=== PATIENT | male | born 1930 | race Two or more races ===

== ENCOUNTER 2016-05-31 11:00 | Inpatient (IN) | payer MEDICARE, BC ==
--- NOTE | 2016-05-30 08:03 | HP ---
HISTORY AND PHYSICAL: DATE OF OFFICE VISIT: 05/27/16 DATE OF SURGERY/ADMISSION: 05/31/16 ATTENDING SURGEON: Dorothy Gaspar MD (dictated by NIKITA Moya) PROCEDURE: Left total hip replacement. CHIEF COMPLAINT: Left hip pain. HISTORY OF PRESENT ILLNESS: The patient is a very pleasant 85-year-old gentleman who presents today for a history and physical examination prior to undergoing a left total hip replacement by Dr. Dorothy Gaspar. He presents today in the office with his . In brief, the patient has tried several conservative treatments including exercises, hip injections, and antiinflammatory medication; however, he has had no relief in worsening of his left hip pain. He has elected to undergo a left total hip arthroplasty by Dr. Dorothy Gaspar on 05/31/16. PAST MEDICAL HISTORY: 1. Irritable bowel syndrome. 2. History of TIA. 3. History of dislocated knee as a teenager. PAST SURGICAL HISTORY: 1. Repair of dislocated knee as a teenager. 2. Cataract surgery. 3. Detached retinal surgery in 1999. CURRENT MEDICATIONS: The patient is not currently taking any medications. He has tried Advil as well as Motrin in the past for pain relief. ALLERGIES: LEVAQUIN. FAMILY MEDICAL HISTORY: Maternal cancer. Paternal advanced arthritis. SOCIAL HISTORY: The patient is and lives with his . He is retired. Denies tobacco or recreational drug use. Occasional alcohol use. REVIEW OF SYSTEMS: General: Negative for fevers, chills, or night sweats. No known difficulty with anesthesia. HEENT: Negative for headaches, lightheadedness, or syncopal episodes. Integument: Negative for abrasions, lesions, or open wounds. Cardiothoracic: Negative for chest pain, palpitations , or edema. Negative for hypertension. History of skipped heartbeats, however, asymptomatic. Pulmonary: Negative for shortness of breath or exertion, chronic cough, or COPD. GI: Negative for nausea or vomiting. Positive for constipation and diarrhea with IBS flareup. He does not take medications for this flareup. No history of GERD. : Negative for nocturia, urinary frequency , urgency, history of UTIs, or kidney problems. Musculoskeletal: Positive for left hip pain. Positive for right hip pain. Positive for carpal tunnel. Neuro : Positive for numbness in bilateral hands due to carpal tunnel disease. No history of seizures or epilepsy. Positive for TIA. Endocrine: Negative for diabetes or thyroid disease. Hematologic: Negative for easy bruising, anemia, or excessive bleeding. No history of DVTs or PEs. Infectious Disease: Negative for MRSA, hepatitis C, or HIV. PHYSICAL EXAMINATION GENERAL: Well appearing, in no acute distress, 85-year-old male. VITAL SIGNS: Blood pressure of 122/82, pulse 70 and regular rhythm, and respirations 18. HEENT: Normocephalic, atraumatic. EOMI. NECK: Supple. PULMONARY: Lungs are clear to auscultation bilaterally. No crackles, rhonchi, or wheezes. CARDIAC: Irregular rhythm. Audible S1, S2. No murmurs, gallops, or rubs. No edema. ABDOMEN: Soft, nontender, and nondistended. Nonobese. BACK: No CVA tenderness bilaterally. NEUROLOGIC: Alert and oriented x3. Cranial nerves grossly intact. Sensation intact to light touch in bilateral lower extremities. MUSCULOSKELETAL: Antalgic gait favoring on the left side. Posterior tibialis pulses 2+ bilaterally. No edema in bilateral lower extremities. Sensation is intact to bilateral lower extremities. No wounds or sores are seen on bilateral lower extremities. DIAGNOSTIC STUDIES/LAB DATA: CT of the pelvis dated 04/28/16 and left pelvic x -ray dated 04/27/16 show advanced osteoarthritis of the left hip. IMPRESSION: The patient is a very pleasant 85-year-old gentleman who presents today for history and physical examination prior to undergoing an elective left hip arthroplasty by Dr. Dorothy Gaspar. The patient was seen by his primary care physician on 05/20/16, where a referral to cardiology was requested due to the patient's sinus arrhythmia and history of transient ischemic attacks. The patient met with Dr. Bush on 05/27/16, who recommended that the patient undergo an echocardiogram and nuclear stress test to evaluate his heart murmur and abnormal EKG prior to final preoperative clearance. The medications of the patient including Coumadin, Percocet, and Colace were called into the [facility]. The patient was referred to have rehabilitation done at home postoperatively. He will follow up with Dr. Gaspar in approximately 10 to 14 days postoperatively for suture removal and he will call us if any questions or concerns he may have in the future. LUIS GARCIA, NIKITA [id number]/[facility] #: [id number] [facility] HOSPITALDaniel
--- NOTE | 2016-07-04 18:55 | HP ---
HISTORY AND PHYSICAL: DATE OF ADMISSION/SURGERY: 07/08/16 ATTENDING SURGEON: Dr. Dorothy Gaspar. PROCEDURE: Left total hip replacement. CHIEF COMPLAINT: The patient presents for preop for left total hip arthroplasty. HISTORY OF PRESENT ILLNESS: The patient is a very pleasant 85-year-old gentleman who presents today for his history and physical exam prior to undergoing a left total hip arthroplasty by Dr. Gaspar. The patient presents today in the office with his . The patient has tried several conservative treatments including exercises, hip injections, and anti-inflammatory medication ; however, no relief has been found and there is worsening of his left hip pain. The patient has elected to undergo a left total hip arthroplasty with Dr. Gaspar on 07/08/16. PAST MEDICAL HISTORY: Irritable bowel syndrome, history of TIA in March of 2015, history of dislocated knee as a teenager, and bilateral carpal tunnel syndrome. PAST SURGICAL HISTORY: Repair of dislocated knee as a teenager, cataract surgery, detached retinal surgery, and abdominal hernia repair. CURRENT MEDICATIONS: 1. The patient is taking aspirin 325 mg daily. 2. Tylenol as needed for pain. ALLERGIES: LEVAQUIN. FAMILY HISTORY: Maternal cancer. Paternal advanced arthritis. SOCIAL HISTORY: The patient is and lives with his . He is retired. The patient denies tobacco or recreational drug use. Admits to occasional alcohol use, 1 glass of beer 2 to 3 times a week. REVIEW OF SYSTEMS: The patient denies any fevers, chills, night sweats, or anesthesia problems. HEENT: The patient denies any headaches, lightheadedness , or syncopal episodes. Integument: The patient denies any abrasions, lesions , or open wounds. Cardiothoracic: The patient denies any chest pain, palpitations, or edema. The patient denies any hypertension. Pulmonary: The patient denies any shortness of breath with exertion, chronic cough, or COPD. GI: The patient denies any nausea, vomiting, constipation, or diarrhea. The patient denies any GERD. The patient denies any nocturia, urinary frequency, urinary urgency, history of UTIs, or kidney problems. MSK: The patient admits to left hip pain and carpal tunnel syndrome, numbness and tingling of the hands. Neuro: The patient admits to numbness and tingling of the hands bilaterally due to carpal tunnel disease. The patient denies history of seizures or epilepsy. The patient is positive for TIA. Endocrine: The patient denies any diabetes or thyroid complaints. Hematologic: The patient denies any easy bruising, anemia, or excessive bleeding. Infectious Disease: The patient denies any MRSA, hepatitis C, or HIV. PHYSICAL EXAMINATION GENERAL: The patient is a well-appearing male in no acute distress. HEENT: Normocephalic, atraumatic. Extraocular movements are grossly intact. NECK: Supple with no palpable lymphadenopathy. PULMONARY: Lungs clear to auscultation bilaterally. No crackles, rhonchi, or wheezing. CARDIO: Regular rate and rhythm with an audible S1 and S2. No appreciable S3, S4. No murmurs, rubs, or gallops, and mild edema of the ankles. ABDOMEN: Soft, nontender, nondistended. Not obese. The patient has no CVA tenderness bilaterally. NEUROLOGIC: The patient is alert and oriented x3. Cranial nerves are grossly intact. Sensation to light touch bilateral lower extremities. Left lower extremity antalgic gait, favoring the left leg. Posterior tibial pulse is 2+ bilaterally with mild edema bilateral lower extremities. Sensation is intact in the bilateral lower extremities. No wounds or sores seen. DIAGNOSTIC STUDIES: Recent x-ray was deemed acceptable by Dr. Dorothy Gaspar and myself and reviewed by us. ASSESSMENT: Preop for left total hip arthroplasty. PLAN: The patient is a very pleasant 85-year-old gentleman who presents today for his history and physical exam prior to undergoing an elective left total hip arthroplasty. The patient was cleared by Cardiology on 06/30/16 to undergo this procedure. The patient will follow up with Dr. Gaspar in approximately 10 to 14 days postoperatively for suture removal. He will call with any questions or concerns he may have in the meantime. NIKITA MOELLER [id number]/[facility] #: [id number] MTDD
[2016-07-08] MEDS ORDERED: Buffered Lidocaine 1% SYR 3ML* 3 ML/SYR SYRINGE INTRADERM ONE (06:00)
[2016-07-08] MEDS ORDERED: Famotidine TAB* 20 MG PO ONE (06:00)
[2016-07-08] MEDS ORDERED: Dexamethasone IV* 4 MG/ML 1 ML (4 MG) IV SLOW PU ONE (06:00)
[2016-07-08] MEDS ORDERED: Dexamethasone IV* 4 MG/ML 1 ML (4 MG) ONE (06:23)
[2016-07-08] MEDS ORDERED: Famotidine TAB* 20 MG ONE (06:23)
[2016-07-08] MEDS ORDERED: Buffered Lidocaine 1% SYR 3ML* 3 ML/SYR SYRINGE ONE (06:23)
[2016-07-08] MEDS ORDERED: ceFAZolin 2 GM PREMIX (*) 2 GM/50 ML BAG IVPB ONE (06:23)
[2016-07-08] MEDS ORDERED: KETAMINE HCL* 50 MG/ML 10 ML VIAL ONE (07:22)
[2016-07-08] MEDS ORDERED: Morphine PF AMP (0.5MG/ML)* 5 MG/10 ML AMP ONE (07:22)
[2016-07-08] MEDS ORDERED: Midazolam* 1 MG/ML 5 ML VIAL (5 MG) ONE (07:22)
[2016-07-08] MEDS ORDERED: Bupivacaine 0.5% SDV PF* 30 ML VIAL ONE (07:23)
[2016-07-08] MEDS ORDERED: Ondansetron INJ* 2 MG/ML VIAL ONE (07:23)
[2016-07-08] MEDS ORDERED: Propofol* 10 MG/ML 20 ML BTL IV PUSH ONE (07:23)
[2016-07-08] MEDS ORDERED: Phenylephrine IV* 40 MCG/ML 10 ML SYRINGE ONE (08:03)
[2016-07-08] MEDS ORDERED: Nalbuphine* 20 MG/ML 1 ML VIAL IV PRN ×2 (08:35)
[2016-07-08] MEDS ORDERED: fentaNYL* 50 MCG/ML 2 ML VIAL (100 MCG VIAL) IV PRN (08:35)
[2016-07-08] MEDS ORDERED: Ondansetron INJ* 2 MG/ML VIAL IV PRN (08:35)
[2016-07-08] MEDS ORDERED: Naloxone* 0.4 MG/ML 1 ML VIAL IV PRN (08:35)
[2016-07-08] MEDS ORDERED: oxyCODONE/Acetamin 5/325 MG* TAB PO PRN ×2 (08:35)
[2016-07-08] MEDS ORDERED: Phenylephrine INJ* 10 MG/ML 1 ML VIAL (10 MG) ONE (08:45)
--- NOTE | 2016-07-08 10:03 | RAD ---
INDICATION: Left total hip replacement COMPARISON: April 27, 2016 TECHNIQUE/FINDINGS: A crosstable lateral portable image obtained during left total hip replacement shows placement of the acetabular cup with the stem placed for sizing. IMPRESSION: CONTROL IMAGES FOR TOTAL LEFT HIP ARTHROPLASTY
[2016-07-08] MEDS ORDERED: Acetaminophen TAB* 325 MG PO PRN (10:23)
[2016-07-08] MEDS ORDERED: diPHENhydraMINE IV* 50 MG/ML 1 ml VIAL (BENADRYL) IV PRN (10:23)
[2016-07-08] MEDS ORDERED: Bisacodyl SUPP* 10 MG SUPP PR PRN (10:23)
[2016-07-08] MEDS ORDERED: Polyethylene Glycol 3350* 17 GM PACKET PO PRN (10:23)
[2016-07-08] MEDS: Ropivacaine* 300 MG in NS 0.9% 250 ML* 240 ML EPIDURAL SCH (10:30)
--- NOTE | 2016-07-08 11:16 | RAD ---
HISTORY: Status post left total hip arthroplasty COMPARISONS: April 27, 2016 VIEWS: 3, Frontal view of the pelvis with frontal and crosstable lateral views of the left hip FINDINGS: BONE DENSITY: There is diffuse osteopenia. BONES: The patient is status post left hip arthroplasty. There is no hardware failure or osteolysis. JOINTS: The patient is status post left hip arthroplasty. There is moderate to advanced osteoarthritis of the right hip. ALIGNMENT: There is no dislocation. SOFT TISSUES: Unremarkable. OTHER FINDINGS: None. IMPRESSION: OSTEOPENIA. STATUS POST LEFT HIP ARTHROPLASTY. OSTEOARTHRITIS.
[2016-07-08] MEDS ORDERED: oxyCODONE/Acetamin 5/325 MG* TAB ONE (14:52)
[2016-07-08] MEDS ORDERED: Warfarin TAB(*) 6 MG PO ONE (17:00)
[2016-07-08] MEDS: ceFAZolin 1 GM in Dextrose (*) 1 GM/50 ML BAG IVPB SCH ×2 (17:23→22:15)
[2016-07-08] MEDS: Docusate CAP* 100 MG PO SCH (22:14)
[2016-07-08] MEDS: Magnesium Hydroxide LIQ* 30 ML UDC PO SCH (22:14)
[2016-07-09] MEDS: ceFAZolin 1 GM in Dextrose (*) 1 GM/50 ML BAG IVPB SCH (03:31)
[2016-07-09] MEDS: Ropivacaine* 300 MG in NS 0.9% 250 ML* 240 ML EPIDURAL SCH (03:31)
[2016-07-09] MEDS ORDERED: oxyCODONE TAB* 5 MG TAB PO PRN (06:00)
[2016-07-09] MEDS ORDERED: Morphine INJ* 4 MG/ML 1 ML CARPUJECT IV PRN (06:00)
[2016-07-09 07:19] LABS: Hematocrit 28 % (42-52); Hemoglobin 9.3 g/dl (14.0-18.0)
[2016-07-09 07:37] LABS: BUN/Creatinine Ratio 15.5 (8-20); Calcium 8.3 mg/dL (8.6-10.3); EGFR African American 136.3 (>60); Potassium 3.8 mmol/L (3.5-5.0)
--- NOTE | 2016-07-09 09:37 | PN ---
Progress Note - Progress Note SOAP: Subjective: Pt. is alert, slightly confused. He reports pain is well controlled. Objective: LLE - dressing c/d/i. thigh soft, distally +df/pf, full sens lt, 2+ dp pulse. Vital Signs: Temp Pulse Resp BP Pulse Ox 98.6 F 81 16 116/71 98 07/09/16 07:53 07/09/16 07:53 07/09/16 08:25 07/09/16 07:53 07/09/16 08:48 Laboratory Results - last 24 hr 07/09/16 07/09/16 07/09/16 06:51 06:51 06:51 Hgb 9.3 L Hct 28 L INR (Anticoag Therapy) 1.07 Sodium 135 Potassium 3.8 Chloride 102 Carbon Dioxide 28 Anion Gap 5 BUN 11 Creatinine 0.71 Est GFR ( Amer) 136.3 Est GFR (Non-Af Amer) 106.0 BUN/Creatinine Ratio 15.5 Glucose 110 H Calcium 8.3 L Assessment: 85 yo F pod 1 s/p LTHA Plan: PT/OT - wbat lle with post hip precautions 8 mg coumadin tonight, lovenox bridge vitals and hct stable limit pain meds if possible, slight baseline dementia suspected
[2016-07-09] MEDS: Vitamin THERAPEUTIC TAB PO SCH (10:08)
[2016-07-09] MEDS: Docusate CAP* 100 MG PO SCH ×2 (10:08→21:28)
[2016-07-09] MEDS: Magnesium Hydroxide LIQ* 30 ML UDC PO SCH ×2 (10:09→21:28)
[2016-07-09] MEDS: Enoxaparin(*) 30 MG/0.3 ML SYR SUBCUT SCH (12:33)
[2016-07-09] MEDS ORDERED: Warfarin TAB(*) 4 MG PO ONE (17:00)
[2016-07-09] MEDS: Morphine INJ* 2 MG/ML 1 ML CARPUJECT IV PRN (17:35)
[2016-07-09] MEDS: oxyCODONE TAB* 5 MG TAB PO PRN (20:00)
[2016-07-09] MEDS ORDERED: Haloperidol INJ IV/IM* 5 MG/ML AMP IM ONE (20:26)
[2016-07-09] MEDS: Acetaminophen TAB* 325 MG PO SCH (20:41)
--- NOTE | 2016-07-09 20:55 | PN ---
Progress Note - Progress Note Note: Patient becoming more agitated and pulling at lines and tubes, even with at bedside. Trial of 2mg haldol now.
--- NOTE | 2016-07-10 00:37 | OP ---
DATE OF OPERATION: 07/08/16 - ROOM #336 DATE OF : 34 ATTENDING SURGEON: Dorothy Gaspar MD. ZIGZAG TOPSTITCHER: NIKITA Johansen ANESTHESIOLOGIST: Dr. Lawrence. ANESTHESIA: Spinal. PRE-OP DIAGNOSIS: Severe end-stage degenerative osteoarthritis of the left hip joint. POST-OP DIAGNOSIS: Severe end-stage degenerative osteoarthritis of the left hip joint. OPERATIVE PROCEDURE: Left total hip arthroplasty with acetabular bone auto grafting. COMPLICATIONS: None. ESTIMATED BLOOD LOSS: 350 cc. SPECIMENS: Femoral head and acetabular reaming sent to pathology. BRIEF HISTORY/INDICATIONS: Mr. Cano is an 85-year-old gentleman with 1 year of severe left hip pain. He failed conservative treatment with antiinflammatories, physical therapy, pain medication, and ambulatory assistive devices. He elected to undergo left total hip arthroplasty due to continued pain and decreased quality of life. Informed consent was obtained from the patient. He understood the risks of the procedure included, but were not limited to, bleeding, infection, damage to nearby structures, continued pain, need for further surgery, intraoperative fracture, nerve palsy, hardware failure or loosening, dislocation, leg length discrepancy, stroke, heart attack , blood clot and . He wished to proceed. HARDWARE USED: Uncemented total hip arthroplasty hardware from [employer] For the acetabular cup, a Tritanium Hemispherical Shell 58F. The 120 mm and 125 mm screws were used for extra stability. For the polyethylene, a 40F 0-degree Trident X3 polyethylene insert. For the femur, a size 3.5 Accolade TMZF size with 127-degree neck. For the head a 40, +4 V40 L-Fit metal head. INTRAOPERATIVE FINDINGS: Intraoperatively, the patient was noted to have severe end-stage degeneration of the left hip joint. Acetabulum had complete loss of cartilage and extensive subchondral cyst formation in the weightbearing portion of the joint. This was bone grafted with autograft from acetabular reaming and femoral head. DESCRIPTION OF PROCEDURE: Mr. Cano was identified in the preanesthesia unit. His left lower extremity was marked as the correct operative site. Informed consent was signed and placed in the the chart. The patient was taken to the operating room and placed under spinal anesthesia without difficulty. Rose catheter was placed. The patient was placed in the right lateral decubitus position on the peg board. All bony prominences were well padded. Left lower extremity was prepped and draped in the usual sterile fashion. Preop time-out was made to correctly identify the patient, side, and site. Appropriate perioperative antibiotics were given within 1 hour of incision. A 12-cm standard posterior hip incision was made with a 10 blade and carried down through the skin to the lateral fascial layer. Lateral fascial layer was then incised in the line with the skin incision. Charnley retractor was placed and the posterior aspect of the hip joint was visualized. The piriformis and conjoint tendons were identified. These were elevated off the posterolateral femur with electrocautery and tagged with two #5 Ethibond. Next, electrocautery was used to make a standard posterolateral capsular flap and was tagged with two #5 Ethibond. The hip was carefully dislocated. Lesser trochanter to center of femoral head measured 55 mm. The oscillating saw was used to make the appropriate femoral neck cut. The femoral head was sent to pathology. The femur was retracted anteriorly. After appropriate placement of retractors, the acetabulum was easily visualized. Long-handle knife was used to sharply remove any remaining labrum or fibrous tissue from acetabular rim. The acetabulum was sequentially reamed up to a size 57. Good bleeding bone bed was obtained. In the superior portion of the weightbearing dome, there was a large amount of cystic formation. A curette was used to scrape out any fibrous cystic tissue. This area was then bone grafted with acetabular reamings. A 57 trial had excellent stability. A Trident Tritanium Multi-Hole Shell size 58 was chosen. This was impacted into the acetabulum without difficulty. There was satisfactory anteversion and abduction angle. There was excellent stability. Two screws were placed for extra fixation in the superoposterior quadrant, one was length of 20 and one was length of 25 mm. Next, a Trident X3 polyethylene insert 0 degrees with size 40F was chosen, this was impacted into the acetabulum without difficulty. Stability of the insert was checked and rechecked and noted to be stable. Attention was next turned to preparation of the proximal femur. After appropriate placement of retractors, the proximal femur was easily visualized. A canal finder was used to enter the proximal femur. The proximal femur was sequentially broached up to a size 3.5. The 3.5-broach had excellent stability and appropriate anteversion. A trial 127-degree neck as well as a 40 +0 femoral head trial was chosen. The lesser lesser trochanter to center of the femoral head measured 55 mm. The hip was reduced and taken through range of motion. The hip was noted to be stable in all positions. There was good soft tissue tension and appropriate leg length. The hip was carefully dislocated. All trials were carefully removed. Final implant chosen was an Accolade TMZF size 3.5 with a 127-degree neck. This was impacted into the femur without difficulty. There was excellent stability. A 40 +4 metal femoral head was chosen as the final implant. This was impacted on to the femoral neck without difficulty. Lesser trochanter to the center of the femoral head measured 57 mm, which fits preop templating. The hip was reduced. The hip was taken through range of motion and noted to be stable in all positions. There was good soft tissue tension and approximate leg length. The hip was copiously irrigated with sterile saline. Previously tagged capsular flap and tendons were reapproximated to the posterolateral femur through the trochanteric drill holes. The lateral fascial area was reapproximated using interrupted #1 Vicryl. The rest of the incision was closed in a layered fashion using 0 and 2-0 Vicryl. Skin was closed using running 3-0 Monocryl and Dermabond. Sterile, Adaptics, 4x4s and paper tape were used to cover the incision. The patient's anesthesia was reversed without difficulty. He was taken to the PACU in stable condition. Intended weightbearing will be weightbearing as tolerated with posterior hip precautions. Intended DVT prophylaxis will be Coumadin with a Lovenox bridge. [id number]/[facility] #: [id number] [facility]
[2016-07-10] MEDS: Morphine INJ* 2 MG/ML 1 ML CARPUJECT IV PRN (01:56)
[2016-07-10] MEDS: oxyCODONE TAB* 5 MG TAB PO PRN (05:16)
[2016-07-10 06:44] LABS: Hematocrit 29 % (42-52); Hemoglobin 9.9 g/dl (14.0-18.0)
[2016-07-10] MEDS: Docusate CAP* 100 MG PO SCH ×2 (08:51→19:15)
[2016-07-10] MEDS: Acetaminophen TAB* 325 MG PO SCH ×2 (08:51→19:20)
[2016-07-10] MEDS: Vitamin THERAPEUTIC TAB PO SCH (08:51)
[2016-07-10] MEDS: Magnesium Hydroxide LIQ* 30 ML UDC PO SCH ×2 (08:52→19:16)
--- NOTE | 2016-07-10 09:31 | PN ---
Subjective Date of Service: 07/10/16 Interval History: Patient seen and examined. Pt offers no complaints this AM, except that last night was the longest night of his life. Denies fever, chills, shortness of breath, chest discomfort, N/V/D. NSG report that Pt is less confused this AM, than he was yesterday and last night. Family History: Unchanged from Admission Social History: Unchanged from Admission Past Medical History: Unchanged from Admission Objective Active Medications: Acetaminophen (Tylenol Tab*) 975 mg PO BID HERNAN Bisacodyl (Dulcolax Supp*) 10 mg VA DAILY PRN Reason: constipation Docusate Sodium (Colace Cap*) 100 mg PO BID HERNAN Enoxaparin Sodium (Lovenox(*)) 30 mg SUBCUT Q24H HERNAN Lactated Ringer's (Lactated Ringers 1000 Ml Bag*) 1,000 mls @ 100 mls/hr IV PER RATE HERNAN Lactulose (Lactulose*) 30 ml PO Q6H PRN Reason: constipation Magnesium Hydroxide (Milk Of Magnesia Liq*) 30 ml PO BID HERNAN Morphine Sulfate (Morphine Inj (Syringe)*) 2 mg IV Q30M PRN Reason: PAIN - UNRELIEVED Multivitamins (Theragran Tab*) 1 tab PO DAILY HERNAN Oxycodone HCl (Roxycodone Tab*) 5 mg PO Q4H PRN Reason: PAIN Pharmacy Profile Note (Coumadin Daily Reminder*) 1 note FOLLOW UP 1700 HERNAN Polyethylene Glycol/Electrolytes (Miralax*) 17 gm PO DAILY PRN Reason: Constipation Vital Signs 07/09/16 07/09/16 07/09/16 12:27 16:00 16:21 Temperature 97.3 F 98.0 F Pulse Rate 79 84 Respiratory 18 16 Rate Blood Pressure 101/57 126/74 (mmHg) O2 Sat by Pulse 97 97 93 Oximetry 07/09/16 07/09/16 07/10/16 22:00 22:30 01:56 Temperature 98.6 F Pulse Rate 96 Respiratory 17 18 17 Rate Blood Pressure 121/72 (mmHg) O2 Sat by Pulse 92 Oximetry 07/10/16 07/10/16 07/10/16 02:56 05:16 05:24 Temperature 98.0 F Pulse Rate 89 Respiratory 17 17 20 Rate Blood Pressure 131/79 (mmHg) O2 Sat by Pulse 98 Oximetry 07/10/16 07/10/16 07/10/16 07:16 08:34 08:48 Temperature 98.4 F Pulse Rate 86 Respiratory 16 18 Rate Blood Pressure 129/83 (mmHg) O2 Sat by Pulse 96 98 Oximetry Oxygen Devices in Use Now: None Appearance: NAD, sitting up in bed. Eyes: No Scleral Icterus, PERRLA Ears/Nose/Mouth/Throat: NL Teeth, Lips, Gums, Mucous Membranes Moist Neck: NL Appearance and Movements; NL JVP, Trachea Midline Respiratory: Symmetrical Chest Expansion and Respiratory Effort, Clear to Auscultation Cardiovascular: NL Sounds; No Murmurs; No JVD, RRR Abdominal: NL Sounds; No Tenderness; No Distention Lymphatic: No Cervical Adenopathy Extremities: No Edema Skin: No Rash or Ulcers, - - Dressing to left hip clean, dry and intact. Neurological: Alert and Oriented x 3, NL Muscle Strength and Tone Lines/Tubes/Other Access: Clean, Dry and Intact Peripheral IV - site benign. Nutrition: Taking PO's Result Diagrams: 07/10/16 05:39 07/09/16 06:51 Assess/Plan/Problems-Billing Assessment: MR. Cano is an 85 yo male with PMH significant for IBS and HX TIA, who presented to the hospital for an elective left total hip arthroplasty with Dr. Gaspar on 07/08. - Patient Problems (1) Status post total hip replacement, left Code(s): Z96.642 - PRESENCE OF LEFT ARTIFICIAL HIP JOINT SNOMED Code(s): 934860686517 Comment: POD #2. Management per Ortho. HH stable. Pt with some confusion overnight, suspect postoperative delirium. Pt required a dose of Haldol last evening. Continue pain medication, limiting narcotics and OT/PT. (2) Delirium Code(s): R41.0 - DISORIENTATION, UNSPECIFIED SNOMED Code(s): 9715728 Comment: AMS improved. Suspect this is related to postoperative delirium. Continue to offer supportive care and limit narcotics. (3) Hx of transient ischemic attack (TIA) Comment: Resume ASA when ok with Ortho. (4) DVT prophylaxis Code(s): DRS6685 - SNOMED Code(s): 929824118 Comment: Continue Lovenox bridge to Warfarin per Ortho. (5) Full code status Code(s): Z78.9 - OTHER SPECIFIED HEALTH STATUS SNOMED Code(s): 225097994 Status and Disposition: Inpatient. Discharge per Ortho.
--- NOTE | 2016-07-10 10:20 | PN ---
Progress Note - Progress Note SOAP: Subjective: POD #2 Left MICHAEL. Pt with some increasing confusion yesterday, seems better today. Denies c/o pain at rest but feels "stiff". Denies CP/SOB or calf pain. Rose reinserted yesterday afternoon due to some retention. Objective: Vital Signs: Temp Pulse Resp BP Pulse Ox 98.4 F 86 18 129/83 98 07/10/16 08:48 07/10/16 08:48 07/10/16 08:48 07/10/16 08:48 07/10/16 08:48 Gen: A & Ox2, unsure of date. NAD sitting in chair LLE: Incision C/D/I, mild ecchymosis surrounding incision, no hematoma or erythema. +f/e at ankles and MTPs. N/V intact Upon standing to change dressing, pt needed 2 assist and was somewhat slow to follow commands. Labs: Laboratory Results - last 24 hr 07/10/16 07/10/16 05:39 05:39 Hgb 9.9 L Hct 29 L INR (Anticoag Therapy) 1.16 H Assessment: POD #2 Left MICHAEL Plan: Cont. PT/OT, PMRU consult for possible acute rehab prior to d/c home INR 1.16, 8mg Coumadin tonight Will continue to follow, appreciate hospitalist input for pt's confusion
--- NOTE | 2016-07-10 11:29 | CONS ---
HOSPITAL MEDICINE CONSULTATION REPORT: DATE OF CONSULT: 07/09/16 CONSULTING PHYSICIAN: Dr. Dorothy Gaspar. ATTENDING PHYSICIAN: Dr. Josiah Barksdale (dictation provided by Pearl Muñoz NP) . REASON FOR CONSULT: Acutely altered mental status. HISTORY OF PRESENT ILLNESS: Mr. Cano is an 85-year-old male with a past medical history of TIA, irritable bowel syndrome, and history of a dislocated knee as a teenage, who presented to the hospital on 07/08/16 for left hip replacement with Dr. Gaspar. Please see the dictated H and P from Dr. Gaspar for complete details. In brief, the patient had ongoing pain, and despite maximum medical conservative treatment, the pain was unrelieved, and therefore, he decided to go on for left total hip replacement. The patient is unable to answer questions reliably at this time, but per his , he was in his normal state of health prior to coming in. Mr. Cano was doing well last evening and into this morning per nursing staff. His does report that the patient called her at home at 8 p.m. and was unclear where he was. This morning, the patient sat up for breakfast and did well. However, by about lunch time, the patient became more tired and confused. He had some difficulty getting back into bed because he had difficulty following commands of the nursing staff. At that time, a consultation was placed from Dr. Gaspar for hospital medicine to see the patient for altered mental status. PAST MEDICAL HISTORY: 1. Irritable bowel syndrome. 2. History of TIA. 3. History of dislocated knee as a teenager. PAST SURGICAL HISTORY: 1. Repair of dislocated knee as a teenager. 2. Cataract surgery. 3. Detached retinal surgery. MEDICATIONS: None as outpatient, but he is currently on: 1. Benadryl IV p.r.n. 2. Oxycodone 10 mg p.r.n. 3. Morphine IV 4 mg p.r.n. q.3 hours. ALLERGIES: LEVOFLOXACIN. FAMILY HISTORY: Reviewed and not obtainable. SOCIAL HISTORY: No report of alcohol, tobacco, or drug use per the patient's . REVIEW OF SYSTEMS: Unobtainable. PHYSICAL EXAM: Vital Signs: Temperature 97.3, pulse rate 73, respiratory rate 18, oxygen saturation 97% on room air, blood pressure 101/57. General: Mr. Cano is lying in the bed. He is in no acute distress. He is calm and cooperative to my examination. When I came in, he was sleeping, but he awakens easily. Neurologic: He is alert. He is oriented to himself. When asked, he states that he is at home. I tell him that he is in the hospital, but then several minutes later when I ask again if he knows where he is, he again states he is at his home. He recognizes his . He moves all extremities equally and strongly. There is some mild suggestion of nasolabial fold flattening on the left, but per the , she feels like his face looks normal. He is able to wiggle his toes and move legs independently and strongly. He follows all commands appropriately. Heart: S1 and S2. No murmur, rub, or gallop. Regular. Lungs: Clear to auscultation bilaterally with no accessory muscle use and good aeration. Abdomen: Soft and nontender with bowel sounds positive x4. Extremities: No cyanosis or edema. Skin: Intact. DIAGNOSTIC STUDIES/LAB DATA: Hemoglobin 9.3, hematocrit 28. Sodium 135, potassium 3.8, chloride 102, serum bicarbonate 28, BUN 11, creatinine 0.71, glucose 110. IMPRESSION: Mr. Cano is an 85-year-old male with significant past medical history only for TIA, who presented to the hospital on 07/08/16 for a left total hip arthroplasty and postoperative day #1. The patient is evidencing altered mental status and Hospital Medicine has been called regarding consultation. PLAN: 1. Altered mental status: Mr. Cano evidences delirium today. He has no focal neurological deficits. He is appropriate and following commands at this time, although he is not oriented. I recommend that efforts to be made to minimize narcotics. I have increased the patient's Tylenol to 975 mg p.o. b.i.d. as a standing dose. I have decreased his oxycodone from 10 mg to 5 mg. I also decreased morphine to 2 mg IV. This can be adjusted as needed if the patient's pain is uncontrolled, but I hope to decrease his narcotic medications in addition to items such as Benadryl in an effort to improve his mental status. 2. Postop day #1 status post hip replacement: Management will be per orthopedic surgeon. The patient will have physical and occupational therapy management. We will monitor the H and H closely. He will have pain medications and a bowel regimen. 3. DVT prophylaxis with warfarin and Lovenox per ortho. 4. Disposition per ortho. TIME SPENT: Approximately 40 minutes were spent in the consultation of this patient; more than half that time was spent with the patient and his at the bedside reviewing the events leading up to this hospitalization and during this hospital, performing the physical examination, and reviewing the plan of care. PEARL MUÑOZ [place] [id number]/[facility] #: [id number] RASHI
[2016-07-10] MEDS: Enoxaparin(*) 30 MG/0.3 ML SYR SUBCUT SCH (13:44)
[2016-07-10] MEDS ORDERED: Warfarin TAB(*) 4 MG PO ONE (17:00)
[2016-07-11] MEDS: Morphine INJ* 2 MG/ML 1 ML CARPUJECT IV PRN (01:39)
[2016-07-11 06:08] LABS: Hematocrit 29 % (42-52); Hemoglobin 9.5 g/dl (14.0-18.0); Mean Platelet Volume 8 um3 (7.4-10.4)
[2016-07-11] MEDS: Magnesium Hydroxide LIQ* 30 ML UDC PO SCH ×2 (09:01→21:40)
[2016-07-11] MEDS: Docusate CAP* 100 MG PO SCH ×2 (09:01→21:40)
[2016-07-11] MEDS: Acetaminophen TAB* 325 MG PO SCH ×2 (09:01→21:39)
[2016-07-11] MEDS: Vitamin THERAPEUTIC TAB PO SCH (09:01)
--- NOTE | 2016-07-11 12:41 | PN ---
Subjective Date of Service: 07/11/16 Interval History: Patient seen and examined at bedside. Pt states that he feels well, but is "groggy" today. Denies fever, chills, lightheadedness, dizziness, shortness of breath, chest discomfort, palpitations, N/V/D. Family History: Unchanged from Admission Social History: Unchanged from Admission Past Medical History: Findings - HX: SVT Objective Active Medications: Acetaminophen (Tylenol Tab*) 975 mg PO BID [facility] Bisacodyl (Dulcolax Supp*) 10 mg LA DAILY PRN Reason: constipation Docusate Sodium (Colace Cap*) 100 mg PO BID [facility] Enoxaparin Sodium (Lovenox(*)) 30 mg SUBCUT Q24H [facility] Lactated Ringer's (Lactated Ringers 1000 Ml Bag*) 1,000 mls @ 100 mls/hr IV PER RATE [facility] Lactulose (Lactulose*) 30 ml PO Q6H PRN Reason: constipation Magnesium Hydroxide (Milk Of Magnesia Liq*) 30 ml PO BID [facility] Morphine Sulfate (Morphine Inj (Syringe)*) 2 mg IV Q30M PRN Reason: PAIN - UNRELIEVED Multivitamins (Theragran Tab*) 1 tab PO DAILY [facility] Oxycodone HCl (Roxycodone Tab*) 5 mg PO Q4H PRN Reason: PAIN Pharmacy Profile Note (Coumadin Daily Reminder*) 1 note FOLLOW UP 1700 [facility] Polyethylene Glycol/Electrolytes (Miralax*) 17 gm PO DAILY PRN Reason: Constipation Vital Signs 07/10/16 07/10/16 07/10/16 15:18 15:31 16:00 Temperature 97.5 F Pulse Rate 79 75 Respiratory 22 Rate Blood Pressure 83/49 99/60 (mmHg) O2 Sat by Pulse 93 93 Oximetry 07/10/16 07/10/16 07/10/16 19:20 19:34 23:19 Temperature 97.6 F 98.2 F Pulse Rate 80 91 Respiratory 22 22 16 Rate Blood Pressure 95/58 120/70 (mmHg) O2 Sat by Pulse 96 96 Oximetry 07/11/16 07/11/16 07/11/16 01:39 02:39 02:56 Temperature 98.4 F Pulse Rate 91 Respiratory 20 18 16 Rate Blood Pressure 135/75 (mmHg) O2 Sat by Pulse 96 Oximetry 01/07/11/16 07/11/16 07:57 08:00 12:18 Temperature 98.2 F 97.8 F Pulse Rate 87 78 Respiratory 17 16 20 Rate Blood Pressure 134/85 106/56 (mmHg) O2 Sat by Pulse 96 96 96 Oximetry Oxygen Devices in Use Now: None Appearance: NAD, sleepy, sitting up in a chair. Eyes: No Scleral Icterus, PERRLA Ears/Nose/Mouth/Throat: NL Teeth, Lips, Gums, Mucous Membranes Moist Neck: NL Appearance and Movements; NL JVP, Trachea Midline Respiratory: Symmetrical Chest Expansion and Respiratory Effort, Clear to Auscultation Cardiovascular: - - Heart rate irregular, 2/6 systolic murmur heard best at the left sternal border. Abdominal: NL Sounds; No Tenderness; No Distention - Bowel sounds present. Extremities: No Edema Skin: No Rash or Ulcers, - - Dressing to left hip clean, dry and intact. Neurological: Alert and Oriented x 3 - Oriented to Person, Place, Month, Year, and knows he is in the hospital for hip surgery., NL Muscle Strength and Tone Lines/Tubes/Other Access: Clean, Dry and Intact Peripheral IV - site benign. Nutrition: Taking PO's Result Diagrams: 07/11/16 05:53 07/11/16 14:18 EKG Data: 07/11 - EKG Sinus arrhythmia. Assess/Plan/Problems-Billing Assessment: MR. Cano is an 85 yo male with PMH significant for IBS and HX TIA, who presented to the hospital for an elective left total hip arthroplasty with Dr. Gaspar on 07/08. - Patient Problems (1) Status post total hip replacement, left Code(s): Z96.642 - PRESENCE OF LEFT ARTIFICIAL HIP JOINT SNOMED Code(s): 471830663296 Comment: POD #3. Management per Ortho. HH stable. Continue pain medication, limiting narcotics and OT/PT. Possible discharge to [facility] in the AM. (2) Delirium Code(s): R41.0 - DISORIENTATION, UNSPECIFIED SNOMED Code(s): 1838092 Comment: AMS improved. Suspect this is related to postoperative delirium. Continue to offer supportive care and limit narcotics. (3) SVT (supraventricular tachycardia) Code(s): I47.1 - SUPRAVENTRICULAR TACHYCARDIA SNOMED Code(s): 6387942 Comment: Noted on EKG but not captured, up to 5 beat runs. Pt asymptomatic. Pt not hypoxic. Will check electrolytes today, and replace if needed. Echo from 05/2016 without significant abnormality. (4) Hx of transient ischemic attack (TIA) Comment: Resume ASA when ok with Ortho. (5) DVT prophylaxis Code(s): LQA9205 - SNOMED Code(s): 975910361 Comment: Continue Lovenox bridge to Warfarin per Ortho. (6) Full code status Code(s): Z78.9 - OTHER SPECIFIED HEALTH STATUS SNOMED Code(s): 394798617 Status and Disposition: Inpatient. Discharge per Ortho.
--- NOTE | 2016-07-11 13:24 | PN ---
Progress Note - Progress Note SOAP: Subjective: [Pt was seen this afternoon sitting in chair sleeping. Pt states that he is doing better and that the pain is less than it had been. Pt denies any Chest pain, SOB or calf pain. ] Objective: [Gen: Pt is alseep but is able to be aroused. Pt is unsure of where he is currently. Pt does not appear in distress. LLE: Incision C/D/I, mild ecchymosis surrounding incision. N/V intact. DP and PT 2+ ] Vital Signs Temp 97.8 F 07/11/16 12:18 Pulse 78 07/11/16 12:18 Resp 20 07/11/16 12:18 BP 106/56 07/11/16 12:18 Pulse Ox 96 07/11/16 12:18 Intake & Output 07/10/16 07/11/16 07/11/16 18:59 06:59 18:59 Intake Total 300 600 320 Output Total 650 175 200 Balance -350 425 120 Intake: Oral 300 600 320 Output: Urine 100 175 200 Rose 550 Other: Estimated Void Medium Large Estimated Stool Amount Medium Large Laboratory Results - last 24 hr 07/11/16 07/11/16 05:53 05:53 Hgb 9.5 L Hct 29 L Plt Count 209 MPV 8 INR (Anticoag Therapy) 1.62 H Assessment: [POD#3 LTHA ] Plan: [Pt has an INR of 1.62. Coumadin dose of 6mg to be given tonight. Pt was accepted to [facility]. Hospitalists wish to keep him on floor one more night in order to monitor more closely and to run some cardiac tests. ]
[2016-07-11] MEDS: Enoxaparin(*) 30 MG/0.3 ML SYR SUBCUT SCH (13:32)
[2016-07-11 15:13] LABS: BUN/Creatinine Ratio 20.2 (8-20); Calcium 8.6 mg/dL (8.6-10.3); EGFR African American 112.2 (>60); EGFR Non-African American 87.3 (>60); Magnesium 2.2 mg/dL (1.9-2.7); Potassium 3.8 mmol/L (3.5-5.0)
[2016-07-11] MEDS ORDERED: Warfarin TAB(*) 6 MG PO SCH (17:00)
[2016-07-11] MEDS: oxyCODONE TAB* 5 MG TAB PO PRN (17:26)
[2016-07-11] MEDS ORDERED: Potassium Chlor TAB* 20 MEQ TAB.ER PO ONE (17:54)
[2016-07-12 06:58] LABS: Hematocrit 28 % (42-52); Hemoglobin 9.3 g/dl (14.0-18.0)
[2016-07-12 07:49] VITALS: BP 141/81
[2016-07-12] MEDS: Acetaminophen TAB* 325 MG PO SCH (07:55)
[2016-07-12] MEDS: Docusate CAP* 100 MG PO SCH (07:55)
[2016-07-12] MEDS: Vitamin THERAPEUTIC TAB PO SCH (07:55)
[2016-07-12] MEDS: Magnesium Hydroxide LIQ* 30 ML UDC PO SCH (08:00)
--- NOTE | 2016-07-12 08:13 | PN ---
Subjective Date of Service: 07/12/16 Interval History: Patient seen and examined at this time. Pt states that he has some left hip pain this AM. Denies fever, chills, shortness of breath, chest discomfort, palpitations, N/V/D. Pt states that he last moved his bowels yesterday. Family History: Unchanged from Admission Social History: Unchanged from Admission Past Medical History: Findings - HX: SVT Objective Active Medications: Acetaminophen (Tylenol Tab*) 975 mg PO BID HERNAN Bisacodyl (Dulcolax Supp*) 10 mg [place] DAILY PRN Reason: constipation Docusate Sodium (Colace Cap*) 100 mg PO BID HERNAN Enoxaparin Sodium (Lovenox(*)) 30 mg SUBCUT Q24H [facility] Lactated Ringer's (Lactated Ringers 1000 Ml Bag*) 1,000 mls @ 100 mls/hr IV PER RATE HERNAN Lactulose (Lactulose*) 30 ml PO Q6H PRN Reason: constipation Magnesium Hydroxide (Milk Of Magnesia Liq*) 30 ml PO BID [facility] Morphine Sulfate (Morphine Inj (Syringe)*) 2 mg IV Q30M PRN Reason: PAIN - UNRELIEVED Multivitamins (Theragran Tab*) 1 tab PO DAILY [facility] Oxycodone HCl (Roxycodone Tab*) 5 mg PO Q4H PRN Reason: PAIN Pharmacy Profile Note (Coumadin Daily Reminder*) 1 note FOLLOW UP 1700 [facility] Polyethylene Glycol/Electrolytes (Miralax*) 17 gm PO DAILY PRN Reason: Constipation Warfarin Sodium (Coumadin Tab(*)) 6 mg PO ONCE@1700 [facility] Stop: 07/12/16 17:01 Vital Signs 07/11/16 07/11/16 07/11/16 12:18 15:29 17:26 Temperature 97.8 F 99.2 F Pulse Rate 78 84 Respiratory 20 18 16 Rate Blood Pressure 106/56 100/58 (mmHg) O2 Sat by Pulse 96 94 Oximetry 07/11/16 07/11/16 07/11/16 19:26 19:45 20:05 Temperature 97.4 F Pulse Rate 97 Respiratory 18 18 16 Rate Blood Pressure 119/69 (mmHg) O2 Sat by Pulse 95 Oximetry 07/11/16 07/11/16 07/12/16 23:31 23:45 00:00 Temperature 98.3 F Pulse Rate 119 92 Respiratory 16 Rate Blood Pressure 96/62 (mmHg) O2 Sat by Pulse 96 96 Oximetry 07/12/16 07/12/16 07/12/16 04:02 06:59 07:01 Temperature 97.6 F 97.7 F Pulse Rate 85 84 Respiratory 16 16 18 Rate Blood Pressure 128/69 141/81 (mmHg) O2 Sat by Pulse 98 97 Oximetry Oxygen Devices in Use Now: None Appearance: NAD, sitting up in bed. Eyes: No Scleral Icterus, PERRLA Ears/Nose/Mouth/Throat: NL Teeth, Lips, Gums, Mucous Membranes Moist Neck: NL Appearance and Movements; NL JVP, Trachea Midline Respiratory: Symmetrical Chest Expansion and Respiratory Effort, Clear to Auscultation Cardiovascular: NL Sounds; No Murmurs; No JVD, - - Heart rate irregular. 2/6 systolic murmur, heard best at the left sternal border. Abdominal: NL Sounds; No Tenderness; No Distention Extremities: No Edema Skin: No Rash or Ulcers, - - Dressing to left hip clean, dry and intact. Neurological: Alert and Oriented x 3 - , some confusion., NL Muscle Strength and Tone Lines/Tubes/Other Access: Clean, Dry and Intact Peripheral IV - site benign. Nutrition: Taking PO's Result Diagrams: 07/12/16 06:40 07/11/16 14:18 EKG Data: 07/11 - EKG Sinus arrhythmia. Assess/Plan/Problems-Billing Assessment: MR. Cano is an 85 yo male with PMH significant for IBS and HX TIA, who presented to the hospital for an elective left total hip arthroplasty with Dr. Gaspar on 07/08. - Patient Problems (1) Status post total hip replacement, left Code(s): Z96.642 - PRESENCE OF LEFT ARTIFICIAL HIP JOINT SNOMED Code(s): 198369717949 Comment: POD #4. Management per Ortho. HH stable. Continue pain medication, limiting narcotics and OT/PT. Possible discharge to [facility] this AM. (2) Delirium Code(s): R41.0 - DISORIENTATION, UNSPECIFIED SNOMED Code(s): 6414804 Comment: AMS improved. Suspect this is related to postoperative delirium. Continue to offer supportive care and limit narcotics. (3) SVT (supraventricular tachycardia) Code(s): I47.1 - SUPRAVENTRICULAR TACHYCARDIA SNOMED Code(s): 4736308 Comment: Noted on EKG but not captured, up to 5 beat runs. Pt asymptomatic. Pt not hypoxic. Received KCL yesterday. Echo from 05/2016 without significant abnormality. (4) Hx of transient ischemic attack (TIA) Comment: Resume ASA when ok with Ortho. (5) DVT prophylaxis Code(s): LWS0717 - SNOMED Code(s): 952347586 Comment: Continue Lovenox bridge to Warfarin per Ortho. (6) Full code status Code(s): Z78.9 - OTHER SPECIFIED HEALTH STATUS SNOMED Code(s): 248067167 Status and Disposition: Inpatient. Discharge per Ortho. Pt is stable for discharge to [facility] today from a medical standpoint. Will sign off at this time.
--- NOTE | 2016-07-12 08:33 | PN ---
Progress Note - Progress Note SOAP: Subjective: pt resting comfortably with improving pain Objective: Vital Signs Temp Pulse Resp BP Pulse Ox 97.7 F 84 18 141/81 97 07/12/16 07:01 07/12/16 07:01 07/12/16 07:01 07/12/16 07:01 07/12/16 07:01 Laboratory Last Values Hgb 9.3 g/dl (14.0-18.0) L 07/12/16 06:40 Hct 28 % (42-52) L 07/12/16 06:40 Plt Count 209 10^3/ul (150-450) 07/11/16 05:53 MPV 8 um3 (7.4-10.4) 07/11/16 05:53 INR (Anticoag Therapy) 1.56 (0.89-1.11) H 07/12/16 06:40 Sodium 136 mmol/L (133-145) 07/11/16 14:18 Potassium 3.8 mmol/L (3.5-5.0) 07/11/16 14:18 Chloride 101 mmol/L (101-111) 07/11/16 14:18 Carbon Dioxide 28 mmol/L (22-32) 07/11/16 14:18 Anion Gap 7 mmol/L (2-11) 07/11/16 14:18 BUN 17 mg/dL (6-24) 07/11/16 14:18 Creatinine 0.84 mg/dL (0.67-1.17) 07/11/16 14:18 Est GFR ( Amer) 112.2 (>60) 07/11/16 14:18 Est GFR (Non-Af Amer) 87.3 (>60) 07/11/16 14:18 BUN/Creatinine Ratio 20.2 (8-20) H 07/11/16 14:18 Glucose 127 mg/dL (70-100) H 07/11/16 14:18 Calcium 8.6 mg/dL (8.6-10.3) 07/11/16 14:18 Magnesium 2.2 mg/dL (1.9-2.7) 07/11/16 14:18 incision: c/d; dressing changed PE: NVI Assessment: s/p left MICHAEL Plan: 1) PT/OT 2) Continue DVT prophylaxis 3) transfer to inpatient rehab today; continue Coumadin for 1 month, F/U with Dr. Gaspar in 2 weeks
--- NOTE | 2016-07-12 11:45 | DS ---
DISCHARGE SUMMARY: DATE OF ADMISSION: 07/08/16 DATE OF DISCHARGE: 07/12/16 SURGEON: Dr. Dorothy Gaspar. PRINCIPAL DIAGNOSIS: End-stage arthritis, left hip. DISCHARGE DIAGNOSIS: End-stage arthritis, left hip. 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 He has failed conservative management and has elected to proceed with left total hip arthroplasty. HOSPITAL COURSE: Mr. Cano was admitted to the hospital on 07/08/16 and underwent a left total hip arthroplasty with acetabular bone autografting. He tolerated the surgery well and postoperatively was placed on Coumadin and Lovenox for DVT prophylaxis as well as Ancef for 24 hours postop. Postoperative day 1, his H and H was 9.3 and 28; on postop day 2, it was 9.9 and 29; on postop day 3, it was 9.5 and 29; at the time of discharge, his H and H was 9.3 and 28. His INRs were checked daily and his INR on postop day 1 was 1.07; on postop day 2, 1.16; on postop day 3, 1.62; on postop day 4, 1.56. At the time of discharge, he was afebrile and his wound was clean and dry. He was transferred to [facility] for continued inpatient rehabilitation. DISCHARGE MEDICATIONS: 1. Coumadin. 2. Tylenol. 3. Percocet for pain. PHYSICAL EXAMINATION: Upon discharge, the incision was clean, dry, and healing well. Dressing was changed. His lower extremity muscle group strengths were intact at 5/5. He has intact sensation to pinprick and light touch, bilateral lower extremities. He has 2+ dorsalis pedis pulses and ambulating well. DISCHARGE INSTRUCTIONS: He was discharged to [facility]. He is instructed to continue taking Coumadin for a total of 1 month. His last INR was 1.56, so he was instructed to take 4 mg of Coumadin ton and Monday night. His INR will be rechecked on and then dosed accordingly. He will follow up with Dr. Gaspar in 2 weeks. He may shower, but cannot take a bath. Incision will need to be dried and then a clean dressing applied daily. His weightbearing as tolerated. NIKITA GUTIÉRREZ [id number]/[facility] #: [id number] [facility] HOSPITALDaniel
[2016-07-12] MEDS ORDERED: Warfarin TAB(*) 6 MG PO SCH (17:00)
== END 2016-07-12 10:05 | DRG 470 ==
LOC: AA 07-08 06:15 → SSU 07-08 15:16
PROVIDERS: ADMIT Orthopaedic Surgery Adult Reconstructive Orthopaedic Surgery; ATTEND Orthopaedic Surgery Adult Reconstructive Orthopaedic Surgery
PROC: 0SRB02A Replacement of Left Hip Joint with Metal on Polyethylene Synthetic Substitute, Uncemented, Open Approach (ICD-10-PCS; principal; 2016-07-08 07:30)
DX: M16.12 Unilateral primary osteoarthritis, left hip (principal); I47.1 Supraventricular tachycardia; K58.9 Irritable bowel syndrome, unspecified; R41.0 Disorientation, unspecified; R01.1 Cardiac murmur, unspecified; Z88.1 Allergy status to other antibiotic agents; Z80.8 Family history of malignant neoplasm of other organs or systems; Z82.61 Family history of arthritis; Z86.73 Personal history of transient ischemic attack (TIA), and cerebral infarction without residual deficits
CPT/HCPCS: 36415; 72170; 80048; 83735; 85014; 85018; 85049; 85610; 88304; 88311; 93005; 94760; A9270-GY; C1713; C1776; J0690; J1100; J1630; J1650; J2250; J2270; J2405; J2704; J2795

== ENCOUNTER 2016-07-11 11:20 | Inpatient (IN) | payer MEDICARE, BC ==
--- NOTE | 2016-07-12 12:45 | PMRUTEAM ---
PMRU: Goals Current Status: Physical Therapy: Current Status Bed Mobility Assistance Mod Assist Transfer Moblility Assistance Contact Guard Assist Ambulation Assistance Contact Guard Assist,Min Assist Ambulation Assistive Devices Rolling Walker Stairs Assistance Not Tested Stairs Recommended Devices Two Rails Number of Stairs 3 Nutrition: Current Status Monitoring [facility] adm earlier this a.m. Will provide education for pt re coumadin/vitamin K interaction prior to d/c. Full assessment planned by 07/16. Initial goals from [facility] as outlined below. OCCUPATIONAL THERAPY: Min A LB Dressing, Set up UB dressing, CG Toileting, CG toilet transfers, Mod Assist bathing SOCIAL WORK: Lives with in 1 story house, 3 [address] Goals: Nutrition: Goals Intervention Goals 1. Maintain adequate oral intake to support maintenance of lean body mass and post-op recovery . 2. Able to verbalize coumadin/vitamin K interaction eating guidelines. 3. Maintains bowel regularity w/o constipation/ diarrhea post op. PT: Mod I amb and xfers, up and down 5 steps, ambulate 150 feet with RW OT Mod I for ADLs and ADL transfers Care Plan: Care Plan Mobility- Improve/Maintain Start: 07/12/16 11:38 Freq: DAILY Status: Active Target: Activity Type Activity Date Activity User E-Sign Co-Sign Detail Recorded Client Recorded Date Recorded By Document 07/12/16 11:38 [id number] 07/12/16 11:39 [id number] 07/12/16 11:38 [facility] Outcome: Mobility Physical Therapy Evaluation and Yes Treatment Activity OOB with Assistance Yes WBAT Yes Device Yes Assistance Yes Patient to be seen 5x/wk for 60-120 min/ Therex day for: Mobility Training Gait Training Balance Outcome/Goals Maintain/ Achieve Baseline Mobility Status Improve Mobility Status Demonstrates Proper Use of Assistive Devices Free from Complications of Immobility Bed Mobility Yes: Independent Transfers Yes: Modified Independent with RW Gait x ft Yes: Modified Independent with RW for 150 ' With HEP Yes: Independent Medicine Note: Length of Stay: 3 days Anticipated Discharge Destination: Tentative Discharge Date: Jul 15, 2016 Discharged to: Home
[2016-07-12] MEDS ORDERED: Bisacodyl SUPP* 10 MG SUPP PR PRN (13:18)
[2016-07-12] MEDS ORDERED: Magnesium Hydroxide LIQ* 30 ML UDC PO PRN (13:18)
[2016-07-12] MEDS ORDERED: oxyCODONE/Acetamin 5/325 MG* TAB PO PRN (13:27)
[2016-07-12] MEDS: Warfarin TAB(*) 3 MG PO SCH (16:48)
[2016-07-12] MEDS: Acetaminophen TAB* 325 MG PO PRN (16:49)
[2016-07-12] MEDS: TIMOLOL GFS 0.5% BOTH EYES SCH (20:15)
[2016-07-12] MEDS: Docusate CAP* 100 MG PO SCH (20:16)
--- NOTE | 2016-07-12 20:54 | HP ---
ADMISSION HISTORY AND PHYSICAL: DATE OF ADMISSION: 07/12/16 REASON FOR ADMISSION: Left total hip replacement. HISTORY OF PRESENT ILLNESS: Alexei Cano is an 85-year-old male. He has medical history significant for left hip pain, which has failed conservative treatment. He tried and failed physical therapy. He had several hip injections and an anti-inflammatory medicine and was not able to get relief. After discussing the risks and benefits, it was decided the best course of action would be for him to have a total hip replacement. He was admitted to [facility] on 07/08/16 and underwent a left total hip replacement that day. Postoperatively, his case was notable for significant delirium. It was felt his delirium was likely caused by pain medications. His narcotics were cut back and he was put on routine Tylenol. He slowly cleared. He was put on Coumadin for DVT prophylaxis. The patient was felt to have physical therapy and occupational therapy needs. He is now being admitted for inpatient rehab so that he might return to independent living. PAST MEDICAL HISTORY: Significant for irritable bowel syndrome. He has a history of TIA in the past. He had a dislocated knee as a teenager. He has carpal tunnel syndrome affecting both hands and tells me he is going to need to have surgery for this. CURRENT MEDICATIONS: Include: 1. Coumadin for DVT prophylaxis. 2. He is on Colace. 3. Senokot. 4. Tylenol. 5. Oxycodone for pain. ALLERGIES: To LEVAQUIN. SOCIAL HISTORY: He is a nonsmoker. He drinks 3 to 4 times a week. He lives with his in a 1-story house with 3 steps to enter. His 's health is pretty good. PHYSICAL EXAMINATION VITAL SIGNS: The patient's temperature is 97.7, blood pressure is 141/81, pulse 84, respirations 18. HEENT: His extraocular movements are intact. Tongue is midline. NECK: Supple. LUNGS: Sound clear to auscultation bilaterally. HEART: Sounds are regular, S1 and S2 are audible. ABDOMEN: Soft and nontender. EXTREMITIES: His left hip has a wound, which is clean and dry. Trace edema noted at the left ankle. Both hands have atrophy of the intrinsic hand muscles including first dorsal interossei. NEUROLOGIC: He is awake, alert, oriented. Muscle strength is about 5/5 except the left leg which is 3/5 secondary to pain. FUNCTIONAL EXAM: The patient transfers with contact guard to min assist. ASSESSMENT: Left total hip replacement. PLAN: Integrate him into a comprehensive and therapeutic rehab program with the following goals: 1. Physical Therapy will work with the patient. They are going to work on functional transfer training, ambulation training with a walker. 2. Occupational Therapy will see the patient, work on his activities of daily living including toileting and toilet transfers. 3. Coumadin for DVT prophylaxis. 4. Adequate analgesia without causing any further mental status changes. 5. His bowels will be regulated. 6. procurement services manager will be closely involved to make sure that any services and equipment the patient requires are in place prior to discharge. 7. Advanced directives: The patient is a full code. His is his surrogate decision maker. 8. Family training as appropriate. 9. Home with appropriate services. ESTIMATED LENGTH OF STAY: 3 to 5 days. [id number]/[facility] #: [id number] RASHI
[2016-07-12] MEDS ORDERED: Senna TAB PO SCH (21:00)
[2016-07-13] MEDS: Acetaminophen TAB* 325 MG PO PRN ×3 (02:15→21:56)
[2016-07-13 07:24] LABS: Hematocrit 28 % (42-52); Hemoglobin 9.3 g/dl (14.0-18.0); Mean Corpuscular HGB Conc 34 g/dl (31-36); Mean Corpuscular Hemoglobin 32 pg (27-31); Mean Corpuscular Volume 94 fL (80-94); Mean Platelet Volume 7 um3 (7.4-10.4); Red Blood Count 2.94 10^6/ul (4.0-5.4); Red Cell Distribution Width 13 % (10.5-15); White Blood Count 9.3 10^3/ul (3.5-10.8)
[2016-07-13 07:41] LABS: Albumin 3.1 g/dL (3.2-5.2); BUN/Creatinine Ratio 18.8 (8-20); Calcium 8.6 mg/dL (8.6-10.3); EGFR African American 140.8 (>60); EGFR Non-African American 109.5 (>60); Globulin 2.9 g/dL (2-4); Potassium 3.8 mmol/L (3.5-5.0); Total Bilirubin 0.6 mg/dL (0.2-1.0)
[2016-07-13] MEDS: Docusate CAP* 100 MG PO SCH (08:21)
[2016-07-13] MEDS: Vitamin THERAPEUTIC TAB PO SCH (08:21)
[2016-07-13] MEDS: Warfarin TAB(*) 3 MG PO SCH (17:10)
[2016-07-13] MEDS ORDERED: Docusate CAP* 100 MG PO PRN (19:54)
[2016-07-13] MEDS ORDERED: Senna TAB PO PRN (19:55)
[2016-07-13] MEDS ORDERED: QUEtiapine TAB* 25 MG PO PRN (19:59)
[2016-07-13] MEDS: TIMOLOL GFS 0.5% BOTH EYES SCH (20:53)
[2016-07-14] MEDS: Acetaminophen TAB* 325 MG PO PRN ×2 (05:06→11:32)
[2016-07-14] MEDS: Vitamin THERAPEUTIC TAB PO SCH (08:05)
[2016-07-14] MEDS: Warfarin TAB(*) 3 MG PO SCH (17:21)
[2016-07-14] MEDS: Hydrocortisone 1% CREAM* 30 GM TUBE TOPICAL SCH (20:56)
[2016-07-14] MEDS: TIMOLOL GFS 0.5% BOTH EYES SCH (20:56)
[2016-07-15] MEDS: Acetaminophen TAB* 325 MG PO PRN ×2 (01:12→08:04)
[2016-07-15 06:50] VITALS: BP 124/62
[2016-07-15] MEDS: Hydrocortisone 1% CREAM* 30 GM TUBE TOPICAL SCH (07:59)
[2016-07-15] MEDS: Vitamin THERAPEUTIC TAB PO SCH (07:59)
[2016-07-15] MEDS ORDERED: Warfarin TAB(*) 4 MG PO SCH (17:00)
[2016-07-15] MEDS ORDERED: Warfarin TAB(*) 3 MG PO SCH (17:00)
--- NOTE | 2016-07-16 02:38 | DS ---
DISCHARGE SUMMARY: DATE OF ADMISSION: 07/12/16 DATE OF DISCHARGE: 07/15/16 DISCHARGE DIAGNOSES: 1. Left total hip replacement. 2. Early dementia. 3. Irritable bowel syndrome. 4. History of transient ischemic attack. 5. Carpal tunnel syndrome. HISTORY OF ILLNESS AND HOSPITAL COURSE: For complete history of the events leading up to his rehab stay, please see the history and physical dictated by me on 07/12/16. While on the rehab unit, the patient was seen by his orthopedic surgeon, who felt that everything was progressing as it should be. He was maintained on Coumadin for DVT prophylaxis. He was seen by Physical and Occupational Therapy and made good gains with both disciplines. With physical therapy at the time of admission, the patient required a contact guard to do a transfer. He was able to ambulate about 100 feet with contact guard assist. With occupational therapy, he was contact guard to min assist for toileting and toilet transfers. By the time of discharge, the patient was independent transferring, independent ambulating, independent with most of his activities of daily living. He required supervision for dressing at the time of discharge and supervision for toilet transfers and toileting. Supervision for tub transfers. The patient was discharged home with his after a family training was performed. He went home on 07/15/16. DISCHARGE DIET: Regular. DISCHARGE MEDICATIONS: 1. Coumadin 7 mg daily or as directed. 2. Timolol eye drops, 1 drop to both eyes at bedtime. 3. Hydrocortisone cream to his back twice a day. SERVICES AFTER DISCHARGE: Through visiting nurse service. He will have home nursing, home physical therapy, and a home health aide. FOLLOWUP: The patient will follow up with Dr. Dorothy Gaspar in a month. He will also follow up with his primary care provider, Dr. Kyleigh Hirsch. CC: Dr. Kyleigh Hirsch * [id number]/[facility] #: [id number] MTDD
== END 2016-07-15 11:50 | disposition home or self-care (01) | DRG 561 ==
LOC: PMRU 07-12 10:15
PROVIDERS: ADMIT Physical Medicine & Rehabilitation; ATTEND Physical Medicine & Rehabilitation
PROC: F07Z5ZZ Bed Mobility Treatment (ICD-10-PCS; principal; 2016-07-12)
PROC: F07Z9ZZ Gait Training/Functional Ambulation Treatment (ICD-10-PCS; 2016-07-12)
PROC: F07Z8ZZ Transfer Training Treatment (ICD-10-PCS; 2016-07-12)
PROC: F08Z0ZZ Bathing/Showering Techniques Treatment (ICD-10-PCS; 2016-07-12)
PROC: F08Z1ZZ Dressing Techniques Treatment (ICD-10-PCS; 2016-07-12)
PROC: F08Z3ZZ Feeding/Eating Treatment (ICD-10-PCS; 2016-07-12)
DX: Z47.1 Aftercare following joint replacement surgery (principal); F03.90 Unspecified dementia, unspecified severity, without behavioral disturbance, psychotic disturbance, mood disturbance, and anxiety; Z96.642 Presence of left artificial hip joint; K58.9 Irritable bowel syndrome, unspecified; G56.03 Carpal tunnel syndrome, bilateral upper limbs; Z86.73 Personal history of transient ischemic attack (TIA), and cerebral infarction without residual deficits; Z88.1 Allergy status to other antibiotic agents
CPT/HCPCS: 36415; 80053; 85025; 85610; A9270-GY

== ENCOUNTER 2017-12-31 20:52 | Emergency (ER) | payer MEDICARE, BC ==
[2017-12-31 22:26] LABS: ABS Basophils 0.1 10^3/ul (0-0.2); ABS Eosinophils 0.2 10^3/ul (0-0.6); ABS Lymphocytes 1.5 10^3/ul (1.0-4.8); ABS Monocytes 1.2 10^3/ul (0-0.8); ABS Nucleated RBC 0 10^3/ul; Eosinophil % 2.1 % (0-6); Hematocrit 45 % (42-52); Hemoglobin 15.1 g/dl (14.0-18.0); INR 1.13 (0.77-1.02); Lymphocyte % 19.4 % (25-47); Mean Corpuscular HGB Conc 34 g/dl (31-36); Mean Corpuscular Hemoglobin 32 pg (27-31); Mean Corpuscular Volume 96 fL (80-94); Nucleated Red Blood Cells % 0; Platelet Count 284 10^3/ul (150-450); Red Blood Count 4.71 10^6/ul (4.00-5.40); Red Cell Distribution Width 14 % (10.5-15); White Blood Count 7.9 10^3/ul (3.5-10.8)
[2017-12-31 22:27] LABS: EGFR Non-African American 45.2 (>60)
--- NOTE | 2018-01-01 00:03 | ED ---
Ulices Ruiz Tariq, scribed for Samia Burger MD on 12/31/17 at 2146 . Lower Extremity - HPI Summary HPI Summary: A 87 y/o male presents to ED c/o right foot swelling and redness. According to the patient's , the patient started with white/clear blisters/bumps on top of his right foot that has now become worse as it has been developing over the past couple days (Monday, 4 days ago). The foot is bright red and swollen. Patient denies any pain with his foot or itching. Patient was given no medication for his foot. PMHx of controlled Atrial Fibrillation. Current medications are for his A-fib. Additionally, he takes diuretics and beta blockers. Patient does not hear well. - History of Current Complaint Chief Complaint: EDExtremityLower Stated Complaint: FEVER/RT FT SWOLLEN Time Seen by Provider: 12/31/17 21:06 Hx Obtained From: Patient Mechanism Of Injury: Unknown - Unknown reasons., Other - Swollen right foot Onset/Duration: Worse Since - Monday, 4 days ago. Severity Currently: None Pain Intensity: 0 Pain Scale Used: 0-10 Numeric Timing: Constant Associated Signs And Symptoms: Positive: Swelling, Redness Aggravating Factor(s): Nothing Alleviating Factor(s): Nothing Able to Bear Weight: Yes - Allergies/Home Medications Allergies/Adverse Reactions: Allergies Allergy/AdvReac Type Severity Reaction Status Date / Time levofloxacin [From Levaquin] AdvReac Unknown Verified 12/31/17 21:04 Reaction Details PMH/Surg Hx/FS Hx/Imm Hx Endocrine/Hematology History: Denies: Hx Anticoagulant Therapy, Hx Diabetes, Hx Thyroid Disease Cardiovascular History: Reports: Other Cardiovascular Problems/Disorders - A COUPLE OF TIA'S Denies: Hx Hypertension, Hx Pacemaker/ICD Respiratory History: Denies: Hx Asthma, Hx Chronic Obstructive Pulmonary Disease (COPD) GI History: Reports: Hx Irritable Bowel Denies: Hx Ulcer History: Reports: Hx Kidney Stones - x1 in the past, Other Problems/ Disorders - hypogonadism Denies: Hx Renal Disease Musculoskeletal History: Reports: Hx Arthritis - knees, hip, hands, Hx Bursitis - knees and hip, Hx Orthopedic Injury - dislocated r knee, Other Musculoskeletal History - carpal tunnel surgery Denies: Hx Rheumatoid Arthritis, Hx Osteoporosis Sensory History: Reports: Hx Contacts or Glasses, Hx Hearing Problem - [place] Denies: Hx Cataracts - removed bilaterally, Hx Hearing Aid Opthamlomology History: Reports: Hx Contacts or Glasses Denies: Hx Cataracts - removed bilaterally Neurological History: Reports: Hx Transient Ischemic Attacks (TIA) - 04/09, Other Neuro Impairments/Disorders - BILAT HANDS Denies: Hx Dementia, Hx Seizures Psychiatric History: Denies: Hx Panic Disorder, Hx Substance Abuse - Surgical History Surgery Procedure, Year, and Place: bilat cataracts, lt spermatocele, concomitant rt hydrocele, laproscopic repair of rt inguinal hernia, detached retinas Hx Anesthesia Reactions: No Infectious Disease History: No Infectious Disease History: Denies: Hx Clostridium Difficile, Hx Hepatitis, Hx Human Immunodeficiency Virus (HIV), Hx of Known/Suspected MRSA, Hx Shingles, Hx Tuberculosis, Traveled Outside the in Last 30 Days - Family History Known Family History: Positive: Other - Pancreatic cancer - Social History Alcohol Use: 1.5 pints Substance Use Type: Reports: None Smoking Status (MU): Never Smoked Tobacco Review of Systems Negative: Fever Positive: Other - POSITIVE: Swelling and redness of right foot. All Other Systems Reviewed And Are Negative: Yes Physical Exam - Summary Physical Exam Summary: VITAL SIGNS: Reviewed. GENERAL: Patient is a well-developed and nourished MALE who is lying comfortable in the stretcher. Patient is not in any acute respiratory distress. HEAD AND FACE: No signs of trauma. No ecchymosis, hematomas or skull depressions. No sinus tenderness. EYES: PERRLA, EOMI x 2, No injected conjunctiva, no nystagmus. EARS: Hearing grossly intact. Ear canals and tympanic membranes are within normal limits. MOUTH: Oropharynx within normal limits. NECK: Supple, trachea is midline, no adenopathy, no JVD, no carotid bruit, no c- spine tenderness, neck with full ROM. CHEST: Symmetric, no tenderness at palpation LUNGS: Clear to auscultation bilaterally. No wheezing or crackles. CVS: Regular rate and rhythm, S1 and S2 present, no murmurs or gallops appreciated. ABDOMEN: Soft, non-tender. No signs of distention. No rebound no guarding, and no masses palpated. Bowel sounds are normal. EXTREMITIES: FROM in all major joints, no edema, no cyanosis or clubbing. NEURO: Alert and oriented x 3. No acute neurological deficits. Speech is normal and follows commands. SKIN: Right foot has swelling, redness and warm to touch. Triage Information Reviewed: Yes Vital Signs On Initial Exam: Initial Vitals Temp Pulse Resp BP Pulse Ox 98 F 49 16 145/92 95 12/31/17 21:00 12/31/17 21:00 12/31/17 21:00 12/31/17 21:00 12/31/17 21:00 Vital Signs Reviewed: Yes Diagnostics - Vital Signs Vital Signs Temp Pulse Resp BP Pulse Ox 12/31/17 21:00 98 F 49 16 145/92 95 - Laboratory Result Diagrams: 12/31/17 21:50 12/31/17 21:50 Lab Statement: Any lab studies that have been ordered have been reviewed, and results considered in the medical decision making process. - Radiology CXR Radiology Interpretation Completed By: ED Physician - CXR WAS ORDERED, HOWEVER IT WAS DENIED BY PATIENT. - Ultrasound No standard instances Ultrasound Interpretation Completed By: Radiologist - US LOWER EXTREMITY VENOUS DOPPLER STUDY: THE DEEP VEINS OF THE RIGHT LOWER EXTREMITY ARE COMPRESSIBLE, PATENT AND AUGMENT NORMALLY. NO EVIDENCE OF DEEP VEIN THROMBOSIS. SUPERFICIAL CALF EDEMA. ED physician has reviewed this imaging report. - EKG 2141 Cardiac Rate: NL - 72 BPM EKG Rhythm: Sinus Rhythm EKG Interpretation: Atrial Fibrillation. Non-Specific T-wave changes. Re-Evaluation - Re-Evaluation First Eval Re-Evaluation Time: 23:17 Comment: DISCUSSED RESULTS AND DISCHARGE WITH PATIENT. Lower Extremity Course/Dx - Course Course Of Treatment: An exam on right foot is red and warm, however it is non- tender. Patient does not complain of any itch in right foot. Patient has normal white count and has normal CRP. Patient does not have any fever in the emergency department. Patient symptoms are near allergic reaction/infection. Patients DVT study for DVT is negative. Patient will be discharged home with a diagnosis of right food swelling. Patient is advised to elevate foot and use cold compresses. Patient does not need any medication at this time. Patient is to see PCP in 1-2 days. - Diagnoses Provider Diagnoses: Swelling of right foot Discharge - Sign-Out/Discharge Documenting (check all that apply): Discharge/Admit/Transfer - DISCHARGE - Discharge Plan Condition: Stable Disposition: HOME Patient Education Materials: Swollen Joint (ED) Referrals: Kyleigh Hirsch MD [Primary Care Provider] - 2 Days (FOLLOW UP WITH PRIMARY CARE PHYSICIAN IN 1-2 DAYS.) Additional Instructions: RETURN TO THE EMERGENCY DEPARTMENT FOR CHANGING OR WORSENING SYMPTOMS The documentation as recorded by the Ulices ponce Tariq accurately reflects the service I personally performed and the decisions made by , Samia Burger MD.
[2018-01-01 00:15] VITALS: BP 122/85
--- NOTE | 2018-01-01 07:33 | RAD ---
HISTORY: DVT, right leg pain and edema, COMPARISONS: None relevant TECHNIQUE: Multiple transverse and longitudinal ultrasound images were obtained of the right lower extremity from the level of the common femoral vein inferiorly through to the infrapopliteal veins using grayscale, color Doppler, and spectral Doppler imaging with and without compression and with augmentation. Comparison images were obtained of the contralateral common femoral vein. FINDINGS: VEINS: The venous system of the right lower extremity is compressible throughout its course, with normal flow on color Doppler imaging and normal response to augmentation on spectral Doppler imaging. SOFT TISSUES: Unremarkable. OTHER FINDINGS: None. IMPRESSION: NO RIGHT LOWER EXTREMITY DEEP VEIN THROMBOSIS
== END 2018-01-01 00:15 | disposition home or self-care (01) ==
LOC: ED 20:52
DX: M79.89 Other specified soft tissue disorders (principal); I48.91 Unspecified atrial fibrillation; Z79.899 Other long term (current) drug therapy; Z86.73 Personal history of transient ischemic attack (TIA), and cerebral infarction without residual deficits; Z88.3 Allergy status to other anti-infective agents
CPT/HCPCS: 36415; 80053; 83605; 84484; 85025; 85610; 85730; 86140; 87040; 93005; 99282

== ENCOUNTER 2018-01-06 14:20 | Emergency (ER) | payer MEDICARE, BC ==
[2018-01-06] MEDS ORDERED: NS 0.9% 1000 ML* 1,000 ML IV ONE (14:46)
--- NOTE | 2018-01-06 14:51 | UC ---
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 He states he decided to lay down, when his neighbors found him and thought that he should come to Urgent Care. Family states he has had progressively worsening weakness since 12/31/17. That day he was unable to walk and was seen in his cardiology office and his medication were changed. Patient denies SOB, CP, and blood in his stools. Patient does not use O2 at home. Family denies new changes in speech, and that current speech is due to changes in dental plate change for roughly the past week. PMHx includes A-fib, first diagnosed in May 2017. - History Of Current Complaint Stated Complaint: WEAKNESS Time Seen by Provider: 01/06/18 14:25 Hx Obtained From: Patient, Family/Ball Warper Tender Onset/Duration: Gradual Onset, Lasting Weeks, Worse Since - today Character: Weak Aggravating Factor(s): Nothing Alleviating Factor(s): Nothing Associated Signs And Symptoms: Positive: Negative. Negative: SOB - Allergies/Home Medications Allergies/Adverse Reactions: Allergies Allergy/AdvReac Type Severity Reaction Status Date / Time levofloxacin [From Levaquin] AdvReac Unknown Verified 01/06/18 14:52 Reaction Details Home Medications: Home Medications Apixaban* [Eliquis*] 5 mg PO BID 01/06/18 [History Confirmed 01/06/18] Latanoprost [Xalatan] 01/06/18 [History Confirmed 01/06/18] Metoprolol Succinate [Metoprolol Succinate ER] 25 mg PO DAILY 01/06/18 [History Confirmed 01/06/18] Spironolactone TAB* [Aldactone TAB*] 25 mg PO DAILY 01/06/18 [History Confirmed 01/06/18] Torsemide TAB* [Demadex*] 20 mg PO DAILY 01/06/18 [History Confirmed 01/06/18] PMH/Surg Hx/FS Hx/Imm Hx Cardiovascular History: Atrial Fibrillation Other History Of: Negative For: Anticoagulant Therapy - Surgical History Surgical History: Yes Surgery Procedure, Year, and Place: bilat cataracts, lt spermatocele, concomitant rt hydrocele, laproscopic repair of rt inguinal hernia, detached retinas - Family History Known Family History: Positive: Other - Pancreatic cancer - Social History Alcohol Use: 1.5 pints Substance Use Type: None Smoking Status (MU): Never Smoked Tobacco - Immunization History Most Recent Influenza Vaccination: 04/10 Most Recent Tetanus Shot: Unknown Most Recent Pneumonia Vaccination: 04/10 Review of Systems Constitutional: Other - general weakness Respiratory: Negative Cardiovascular: Negative All Other Systems Reviewed And Are Negative: Yes Physical Exam - Summary Physical Exam Summary: General:, no pain distress, falls asleep easily Skin: warm, color reflects adequate perfusion, dry Head: normal Eyes: EOMI, SI[place] ENT: dry oral mucosa Neck: supple, nontender Respiratory: CTA, breath sounds present Cardiovascular: Irregularly irregular, no tachycardia Abdomen: soft, nontender Bowel: present Musculoskeletal: normal, strength/ROM intact Neurological: sensory/motor intact, A&O x3, no focal neurological deficits, Slurs speech ( says he has been doing this for a week since partial has been taken out) Psychological: affect/mood appropriate Upon physical exam, patient was recommended to go to Emergency Department, but refused at this time. Triage Information Reviewed: Yes Vital Signs Reviewed: Yes Diagnostics - EKG EKG Comments: 1423: A- fib at 69 BPM, low voltage in extremity leads, flipped T wave in III and aVF, similar to 12/31/17 Cardiac Rate: NL - 69 BPM Cardiac Rhythm: AFib: Old - seen on 12/31/17 EKG Comparison: No Significant Change - to EKG on 12/31/17 Dizzy Course/Dx - Course Course Of Treatment: UPON ARRIVAL, I RECOMMENDED TRANSPORT TO THE EMERGENCY DEPARTMENT BY AMBULANCE. THE PATIENT REFUSED. I DISCUSSED HIS GERERALIZED WEAKNESS, HYPOXIA AND LOW BLOOD PRESSURE AND TOLD HIM HE REQUIRED FURTHER EVALUATION AND CARE IN THE EMERGENCY DEPARTMENT. HE WAS ALSO PRESENT DURING THE DISCUSSION. HE REFUSED TO GO TO THE ED AFTER MULTIPLE ATTEMPTS BY MYSELF TO CONVINCE HIM. DISCHARGED WITH THE RECOMMENDATION TO GO TO THE ED. - Differential Dx/Diagnosis Provider Diagnoses: WEAKNESS. HYPOXIA. HYPOTENSION Discharge - Sign-Out/Discharge Documenting (check all that apply): Patient Departure - Discharge Plan Condition: Fair Disposition: HOME-RECOMMEND TO ED Patient Education Materials: Hypotension (ED), Weakness (ED), Hypoxia (ED) Referrals: Kyleigh Hirsch MD [Primary Care Provider] - Additional Instructions: GO DIRECTLY TO THE EMERGENCY DEPARTMENT FOR FURTHER EVALUATION AND CARE OF YOUR WEAKNESS, LOW BLOOD PRESSURE AND LOW OXYGEN LEVEL. - Billing Disposition and Condition Condition: FAIR Disposition: Home-Recommend to ED
[2018-01-06 15:17] VITALS: BP 107/75
== END 2018-01-06 16:03 | disposition home health service (06) ==
LOC: UCEAST 14:20
DX: R53.1 Weakness (principal); R09.02 Hypoxemia; I95.9 Hypotension, unspecified; Z88.1 Allergy status to other antibiotic agents; I48.91 Unspecified atrial fibrillation; Z80.0 Family history of malignant neoplasm of digestive organs
CPT/HCPCS: 93005; 96360; 99211; G0463

== ENCOUNTER 2018-01-07 13:19 | Observation (INO) | payer MEDICARE, BC ==
[2018-01-07] MEDS ORDERED: NS 0.9% 1000 ML* 1,000 ML IV ONE (13:36)
--- NOTE | 2018-01-07 14:01 | ED ---
Complex/Multi-Sys Presentation - HPI Summary HPI Summary: This patient is a 87 year old M presenting to [facility] [place] accompanied by his family with a chief complaint increasing fatigue. Yesterday the patient was seen at the for hypotension after feeling weak s/p walk. During the walk the patient face planted in the grass and reported to after, they suggested he come to the ED but the patient denied. The patient rates the pain 0/10 in severity. Patient denies n/d, pain, and blood in the stool. Pt is on ELIQUIS for AFib. Pt s reports that a week ago he began to become fatigued with muscle weakness which caused him to begin to ambulate with a walker. Since then it has gotten worse. They contacted his bankruptcy assistant who decreased his diuretic but he hasnt taken as much due to heat and feeling dehydrated anyways. Also the patient fell 3 days and without head injury. Pt was also seen a week ago for blistered on his feet w/ edema, US was negative. This is Hugo ponce documenting for attending Dr. Gigi LAND. - History Of Current Complaint Chief Complaint: EDWeakness Time Seen by Provider: 01/07/18 13:35 Hx Obtained From: Patient Onset/Duration: Lasting Days, Still Present, Worse Since Severity Currently: Moderate Severity Initially: Mild Associated Signs And Symptoms: Positive: Other - weakness and fatigue. Negative : Nausea, Diarrhea - Allergies/Home Medications Allergies/Adverse Reactions: Allergies Allergy/AdvReac Type Severity Reaction Status Date / Time levofloxacin [From Levaquin] AdvReac Unknown Verified 01/07/18 13:34 Reaction Details PMH/Surg Hx/FS Hx/Imm Hx Endocrine/Hematology History: Denies: Hx Anticoagulant Therapy, Hx Diabetes, Hx Thyroid Disease Cardiovascular History: Reports: Hx Atrial Fibrillation, Other Cardiovascular Problems/Disorders - A COUPLE OF TIA'S Denies: Hx Hypertension, Hx Pacemaker/ICD Respiratory History: Denies: Hx Asthma, Hx Chronic Obstructive Pulmonary Disease (COPD) GI History: Reports: Hx Irritable Bowel Denies: Hx Gall Bladder Disease, Hx Ulcer History: Reports: Hx Kidney Stones - x1 in the past, Other Problems/ Disorders - hypogonadism Denies: Hx Renal Disease Musculoskeletal History: Reports: Hx Arthritis - knees, hip, hands, Hx Bursitis - knees and hip, Hx Orthopedic Injury - dislocated r knee, Other Musculoskeletal History - carpal tunnel surgery Denies: Hx Rheumatoid Arthritis, Hx Osteoporosis Sensory History: Reports: Hx Contacts or Glasses, Hx Hearing Problem - [place] Denies: Hx Cataracts - removed bilaterally, Hx Hearing Aid Opthamlomology History: Reports: Hx Contacts or Glasses Denies: Hx Cataracts - removed bilaterally Neurological History: Reports: Hx Transient Ischemic Attacks (TIA) - 04/09, Other Neuro Impairments/Disorders - BILAT HANDS Denies: Hx Dementia, Hx Seizures Psychiatric History: Denies: Hx Panic Disorder, Hx Substance Abuse - Surgical History Surgery Procedure, Year, and Place: bilat cataracts, lt spermatocele, concomitant rt hydrocele, laproscopic repair of rt inguinal hernia, detached retinas Hx Anesthesia Reactions: No Infectious Disease History: No Infectious Disease History: Denies: Hx Clostridium Difficile, Hx Hepatitis, Hx Human Immunodeficiency Virus (HIV), Hx of Known/Suspected MRSA, Hx Shingles, Hx Tuberculosis, Traveled Outside the in Last 30 Days - Family History Known Family History: Positive: Other - Pancreatic cancer - Social History Lives: With Family Alcohol Use: Occasionally Substance Use Type: Reports: None Smoking Status (MU): Never Smoked Tobacco Review of Systems Positive: Fatigue, Other - trouble ambulating Gastrointestinal: Negative - blood in his stool Negative: Diarrhea, Nausea Musculoskeletal: Negative - pain Positive: Weakness All Other Systems Reviewed And Are Negative: Yes Physical Exam - Summary Physical Exam Summary: Appearance: Well appearing, no pain distress, no obvious evidence of trauma Skin: warm, dry, reflects adequate perfusion Head/face: normal, mucus membranes are moist Eyes: EOMI, SIOMARA, implanted lense in bilateral eyes ENT: normal Neck: supple, non-tender Respiratory: CTA, breath sounds present Cardiovascular: normal rate with irregular irregularly rhythm Abdomen: non-tender, soft Bowel Sounds: present Musculoskeletal: no LE edema, strength/ROM intact, there is some muscle wasting in the thighs Neuro: normal, sensory motor intact, A&Ox3 GCS:15 Triage Information Reviewed: Yes Vital Signs On Initial Exam: Initial Vitals Temp Pulse Resp BP Pulse Ox 97.7 F 68 18 104/59 95 01/07/18 13:25 01/07/18 13:25 01/07/18 13:25 01/07/18 13:25 01/07/18 13:25 Vital Signs Reviewed: Yes Diagnostics - Vital Signs Vital Signs Temp Pulse Resp BP Pulse Ox 07/15/18 13:25 97.7 F 68 18 104/59 95 - Laboratory Result Diagrams: 01/07/18 14:14 01/07/18 14:14 Lab Statement: Any lab studies that have been ordered have been reviewed, and results considered in the medical decision making process. - Radiology CXR Radiology Interpretation Completed By: Radiologist - Infiltrate versus atelectasis at the medial aspect of the right lung base. ED physician has reviewed this radiology report. - CT CT Brain CT Interpretation Completed By: Radiologist - Chronic findings as described above without noncontrast CT apparent acute intracranial abnormality. ED physician has reviewed this radiology report. - EKG 1342 Cardiac Rate: NL EKG Rhythm: Atrial Fibrillation - at [address] Segment: Normal EKG Interpretation: nml axis, nml intervals Re-Evaluation - Re-Evaluation First Eval Change: Improved Complex Multi-Symp Course/Dx Course Of Treatment: Patient with profound weakness for the last several days with multiple minor falls. Had low blood pressure yesterday in urgent care. Found to have new infiltrate in the right lower lobe here today. This despite normal WBC. His BNP is slightly elevated but there is no findings consistent with CHF exacerbation. Allergy Levaquin so Rocephin, Zithromax was started. The hospitalist was contacted and will evaluate in the ER for admission. - Diagnoses Differential Diagnoses/HQI/PQRI: Closed Cranial Trauma, Metabolic Abnormality, Sepsis, Urinary Tract Infection Provider Diagnoses: Generalized weakness, Right lower lobe pneumonia, Multiple falls - Physician Notifications Discussed Care Of Patient With: Laurel Covington Time Discussed With Above Provider: 15:32 Instructed by Provider To: Admit As Inpatient Discharge - Sign-Out/Discharge Documenting (check all that apply): Patient Departure - ADMITTED - Discharge Plan Condition: Fair Disposition: ADMITTED TO [facility] Referrals: Kyleigh Hirsch MD [Primary Care Provider] - - Billing Disposition and Condition Condition: FAIR Disposition: Admitted to [facility]
[2018-01-07 14:27] LABS: ABS Basophils 0.1 10^3/ul (0-0.2); ABS Eosinophils 0.1 10^3/ul (0-0.6); ABS Lymphocytes 1.6 10^3/ul (1.0-4.8); ABS Monocytes 0.9 10^3/ul (0-0.8); ABS Neutrophils 5.4 10^3/ul (1.5-7.7); ABS Nucleated RBC 0 10^3/ul; Eosinophil % 1.7 % (0-6); Hematocrit 44 % (42-52); Hemoglobin 14.8 g/dl (14.0-18.0); Lymphocyte % 19.2 % (25-47); Mean Corpuscular HGB Conc 34 g/dl (31-36); Mean Corpuscular Hemoglobin 33 pg (27-31); Mean Corpuscular Volume 96 fL (80-94); Mean Platelet Volume 7.5 um3 (7.4-10.4); Nucleated Red Blood Cells % 0.1; Platelet Count 296 10^3/ul (150-450); Red Blood Count 4.56 10^6/ul (4.00-5.40); Red Cell Distribution Width 14 % (10.5-15); White Blood Count 8.1 10^3/ul (3.5-10.8)
--- NOTE | 2018-01-07 14:41 | RAD ---
INDICATION: Weakness COMPARISON: Similar CT of the brain dated April 22, 2015 TECHNIQUE: Contiguous axial sections of the brain were obtained from the skull base to the vertex without contrast. FINDINGS: The ventricles, cisterns and sulci symmetrical involutional changes similar to the prior CT of the brain. There is mild to moderate periventricular and subcortical white matter hypoattenuation similar in appearance to the previous CT the brain and most consistent with chronic microvascular disease. The ac-white matter differentiation is adequately maintained and there is no sulcal effacement. No significant focal abnormality or mass effect is present. There is no evidence for intracranial hemorrhage. No significant focal osseous abnormality is present. The visualized portion of the paranasal sinuses appear clear. The mastoid air cells are well aerated bilaterally. IMPRESSION: Chronic findings as described above without noncontrast CT apparent acute intracranial abnormality.
[2018-01-07 14:44] LABS: EGFR Non-African American 61.7 (>60)
--- NOTE | 2018-01-07 15:12 | RAD ---
INDICATION: Weakness COMPARISON: Chest x-ray dated July 04, 2016 TECHNIQUE: Single AP portable view of the chest was obtained. FINDINGS: Image quality is compromised due to the relative inferiority of a portable chest x-ray. The heart and mediastinum exhibit normal size and contour. At the medial aspect of the right lung base there is a vaguely defined density not seen on the previous chest x-ray. The lungs are otherwise adequately aerated. Visualized bones are normal for the patient's age. IMPRESSION: Infiltrate versus atelectasis at the medial aspect of the right lung base.
[2018-01-07] MEDS ORDERED: cefTRIAXone(*) 2 GM in NS 0.9% 100 ML* 100 ML IVPB ONE (15:29)
[2018-01-07] MEDS ORDERED: Azithromycin IV(*) 500 MG in NS 0.9% 250 ML* 250 ML IVPB SCH (16:00)
[2018-01-07 16:52] LABS: Urine Appearance Clear; Urine Blood Negative (Negative); Urine Color Yellow; Urine Ketones Negative (Negative); Urine Protein Negative (Negative); Urine Specific Gravity 1.017 (1.010-1.030); Urine Urobilinogen Positive (Negative)
--- NOTE | 2018-01-07 20:38 | HP ---
CC: Dr. Hirsch; Dr. Youssef * [facility] MEDICINE HISTORY AND PHYSICAL: DATE OF ADMISSION: 01/07/18 PRIMARY CARE PHYSICIAN: Dr. Hirsch. TILE HELPER: Dr. Youssef. ATTENDING PHYSICIAN: Dr. Laurel Covington * (dictation provided by Pearl Muñoz NP ). CHIEF COMPLAINT: Weakness. HISTORY OF PRESENT ILLNESS: Mr. Cano is an 87-year-old male with past medical history of atrial fibrillation, severe tricuspid insufficiency, and severe biatrial enlargement, followed closely by Dr. Youssef in the past few months, who presents today to the hospital with worsening weakness over the past week. Mr. Cano is a difficult historian as he consistently denies any complaint, but much of the history is also obtained from his , who is at the bedside. Per her report and as confirmed through Dr. Youssef's notes, the patient first was diagnosed with atrial fibrillation back in May while in [place]. He noted worsening dyspnea with exertion and swelling in his lower extremities, which prompted investigation and the finding of AFib. The patient has undergone 2 cardioversions with a load of amiodarone, but despite this remains in AFib. Since then, the patient has been following with Dr. Youssef recently for dyspnea on exertion and lower extremity edema with adjustments made to the medications including the addition of torsemide and spironolactone. With this, the patient has had significant decrease in his edema. He had a recent echocardiogram which showed right heart failure, severe biatrial enlargement and severe tricuspid insufficiency with an intact ejection fraction , this was a significant change from his last echo in 2016. The patient's noted that the patient started becoming weaker starting approximately 1 week ago. She states that she needed to pull out a walker, which he never used before. As of yesterday, they were out walking in the yard when he had to stop and sit down on the ground because he could not walk any further. They called friends and neighbors to come over and help, and ultimately convinced him to go to [facility] where he was assessed. At [facility], the patient was noted to have low blood pressure and a report of hypoxia and was encouraged to come to the emergency room for evaluation, but the patient states he felt well enough to go home and decided not to come here. His family decided to bring him to the emergency room today. For me today, he is denying any complaint and is most focused on discussing why he should be observed in the hospital. In the emergency room, the patient's labs were essentially unremarkable. His vitals were stable, as he is neither hypoxic or hypotensive as had been noted at [facility]. He does have an elevated BNP of 518, but this is essentially same as his previous 2 findings. He has a chest x-ray, which is read as showing possible right lower lobe infiltrate versus atelectasis, but minor. Patient denies cough, shortness of breath or chest pain and is afebrile. CT brain shows no acute abnormality. EKG shows AFib. PAST MEDICAL HISTORY: 1. Atrial fibrillation. 2. History of right heart failure. 3. History of right severe tricuspid insufficiency. 4. TIA, 2015. 5. Osteoarthritis. MEDICATIONS: Outpatient are: 1. Metoprolol succinate 25 mg p.o. daily. 2. Spironolactone 25 mg p.o. every other day. 3. Torsemide 20 mg p.o. every other day. 4. Apixaban 5 mg p.o. b.i.d. 5. Latanoprost 1 drop both eyes daily. 6. Timolol 0.5% one drop both eyes at bedtime. ALLERGIES: To LEVOFLOXACIN. FAMILY HISTORY: Father in his 90s. Mother in her 50s related to pancreatic cancer. SOCIAL HISTORY: The patient denies tobacco or drug use. He does drink beer, no more than 1 beer a day. REVIEW OF SYSTEMS: A 14-point review of systems was completed with Mr. Cano and all those not mentioned above were negative. PHYSICAL EXAMINATION GENERAL: Mr. Cano is lying in the bed. He is in no acute distress. His family is at the bedside. VITAL SIGNS: Temperature 97.7, pulse rate 68, respiratory rate 17, O2 saturation 93% on room air, blood pressure 112/78. HEENT: The face is symmetrical. The extraocular movements are intact. LUNGS: Clear to auscultation bilaterally. No accessory muscle use and good aeration. HEART: S1 and S2. No murmur, rub, or gallop, and irregular today. ABDOMEN: Soft, nontender with bowel sounds positive x4. EXTREMITIES: No cyanosis. No edema. NEURO: He is alert. He is oriented x3. He moves all extremities equally, has +5 strength in the lower extremities and in the upper extremities while lying in bed. Sensation is grossly intact. This is no facial asymmetry, extra- ocular movements are intact. SKIN: Intact except for a note made of 2 sites where the patient's noted that the patient had had some blistering to the top of his right foot and to his low back. These areas are now covered now with small scabs. There is no erythema. There is no drainage. DIAGNOSTIC STUDIES/LAB DATA: WBC 8.1, hemoglobin 14.8, hematocrit 44, platelet count 296. Sodium 130, potassium 4.0, chloride 98, serum bicarbonate 25, BUN 19, creatinine 1.13, glucose 80, lactic acid 1.3. Troponin 0.03. CRP is pending. BNP is 518. TSH is 6.11. Urine shows no evidence of infection. Chest x-ray is as read per above. CT brain shows no acute abnormalities. ASSESSMENT AND PLAN: Mr. Cano is an 87-year-old male with past medical history of atrial fibrillation and known right heart failure with biatrial enlargement and severe tricuspid insufficiency, who presents today to the hospital with worsening weakness for the past week. The family describes him needing to use a walker. He was described at [facility] yesterday as being hypotensive and hypoxic, but did not want to be transported to the ED. Our plans will be for observation for the followin. Generalized weakness: It is unclear what is driving his weakness, but I suspect that this is related to his ongoing cardiac problems. It could be that he is having uncontrolled atrial fibrillation at times. It could be that his diuretics are causing hypotension. It could be that his heart failure is worsening. Plan to hold diuretics for now out of concern for reported hypotension as he does appear to be euvolemic. I am decreasing his metoprolol to 12.5 tartrate b.i.d. 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 There is a concern for possible pneumonia on the chest x-ray, but I think this is unlikely given the fact the patient has no fever or cough or other sign of infection, but I am checking ESR, CRP, and procalcitonin, which are pending. He is not hypoxic now but will continue to monitor. I question whether he could have a neurological condition contributing to weakness. He denies any back pain or pain radiating down his legs. Patient denies all complaint and I was not able to illicit from him any specific symptom that might further guide our investigation. However, plan to check ESR to evaluate for polymyalgia rheumatica. Patient has no ptosis or dysarthria/dysphagia and denies diplopia which would make myasthenia gravis less likely. Depending on clinical course, neurological consultation could be considered. Plan to have Physical Therapy see the patient tomorrow. 2. Atrial fibrillation: Plan to continue Eliquis. Plan to continue lower dose metoprolol. 3. Chronic congestive right heart failure: Plan to hold his diuretics until the patient could be reevaluated in the a.m. He is euvolemic at this time. 4. Code status is full code. This was reviewed with the patient and the family at the bedside at length and patient is unclear on his decision and would like to remain a full code for now. 5. Disposition. To medical floor with telemetry monitoring. TIME SPENT: Approximately, 60 minutes was spent on the admission of this patient, more than half the time spent with the patient at the bedside reviewing the events leading up to this hospitalization, performing the physical examination, and reviewing my plan of care. PEARL MUÑOZ NP [id number]/CPS #: [id number] MTDDaniel
[2018-01-07] MEDS ORDERED: Timolol 0.5% OPTH.SOL* BTL BOTH EYES SCH (21:00)
[2018-01-07] MEDS: Apixaban* 5 MG TAB PO SCH (21:20)
[2018-01-08] MEDS ORDERED: Latanoprost 0.005%* 2.5 ml BTL BOTH EYES SCH (09:00)
[2018-01-08] MEDS ORDERED: Metoprolol Tartrate TAB* 25 MG PO SCH (09:00)
[2018-01-08 09:41] VITALS: BP 115/79
[2018-01-08] MEDS: Apixaban* 5 MG TAB PO SCH (09:53)
--- NOTE | 2018-01-08 10:03 | ECHO ---
Patient: KEVIN CASANOVA [facility] Rec#: [id number] : 1930 Date: 01/08/2018 Age: 87y Height: 183 cm / 72.0 in Weight: 70 kg / 154.3 lbs Sex: M BSA: 1.91 Room#: 431 Admit Date#: 01/07/2018 Type: Inpatient Referring: Pearl Muñoz NP Reading: Holger Gentile MD [employer] Field Technician: Shannon Matias RDCS,RDMS CC: Kyleigh Hirsch MD Transthoracic Echocardiogram Indication: TV disorder, weakness BP: 118/65 HR: 70 Rhythm: A-Fib Findings History: AFIB, severe TV regurgitation, dyspnea, TIA Technical Comments: The study quality is good. Left Ventricle: The left ventricular chamber size is normal. Mild concentric left ventricular hypertrophy is observed. Basal interventricular septum shows moderate thickening. Global left ventricular wall motion and contractility are within normal limits. There is normal left ventricular systolic function. The estimated ejection fraction is 55-60%. The assessment of diastolic function is non-diagnostic. Left Atrium: The left atrium is moderately dilated. Right Ventricle: The right ventricle is mildly dilated. The right ventricular global systolic function is normal. Right Atrium: The right atrial cavity size is severely dilated. Aortic Valve: The aortic valve is trileaflet. The aortic valve leaflets are mildly thickened. Systolic excursion of the aortic valve is normal. There is trace to mild aortic regurgitation. There is no evidence of aortic stenosis. Mitral Valve: There is mitral annular calcification. The mitral valve leaflets are mildly thickened. There is mild mitral regurgitation. There is no evidence of mitral stenosis. Tricuspid Valve: The tricuspid valve leaflets are mildly thickened. There is severe tricuspid regurgitation. The right ventricular systolic pressure is estimated at 43 mmHg. There is evidence of mild to moderate pulmonary hypertension. Pulmonic Valve: The pulmonic valve structure is not well visualized. There is no evidence of pulmonic valve thickening. There is a trace pulmonic regurgitation. Pericardium: There is no significant pericardial effusion. Aorta: There is no dilatation of the ascending aorta. There is mild dilatation of the aortic arch. Pulmonary Artery: The main pulmonary artery is not well visualized. Venous: The inferior vena cava is dilated. There is less than 50% respiratory change in the inferior vena cava dimension. Summary: There are no significant changes when compared to the previous study done on 12/06/17 Conclusions Mild concentric left ventricular hypertrophy is observed. Global left ventricular wall motion and contractility are within normal limits. The estimated ejection fraction is 55-60%. The right ventricular global systolic function is normal. There is trace to mild aortic regurgitation. There is mild mitral regurgitation. There is severe tricuspid regurgitation. The right ventricular systolic pressure is estimated at 43 mmHg. There is no significant pericardial effusion. There are no significant changes when compared to the previous study done on 12/06/17 Measurements Name Value Normal Range RVIDd (AP) 2D 4.2 cm (0.9 - 2.6) RVDdMajor (2D) 3.8 cm (2.2 - 4.4) RAd ISD 4CH 7.4 cm (3.4 - 4.9) RA (A4C)W 5.9 cm (2.9 - 4.6) IVSd (2D) 1.6 cm (0.6 - 1) LVPWd (2D) 1.1 cm (0.6 - 1) LVIDd (2D) 4.6 cm (3.6 - 5.4) LVIDs (2D) 3.3 cm - LV FS (2D) 28 % (25 - 45) Aortic Annulus 2.1 cm (1.4 - 2.6) Ao root diameter (2D) 3.8 cm (2.1 - 3.5) Ascending Ao 3.1 cm (2.1 - 3.4) Aortic arch 3.5 cm (1.8 - 3.4) LA dimension (AP) 2D 4.4 cm (2.3 - 3.8) LAd ISD 4CH 6.3 cm (2.9 - 5.3) LA ISD 4CH W 4.2 cm (2.5 - 4.5) Name Value Normal Range LA ESV BP (A/L) index 54 ml/m2 - Name Value Normal Range MV E-wave Vmax 0.9 m/sec - MV deceleration time 161 msec - LV septal e' Vmax 0.09 m/sec - LV lateral e' Vmax 0.12 m/sec - LV E:e' septal ratio 10 ratio - LV E:e' lateral ratio 8 ratio - Name Value Normal Range AV Vmax 0.9 m/sec - AV peak gradient 3.2 mmHg - LVOT Vmax 0.9 m/sec - LVOT peak gradient 3.2 mmHg - COLLEEN Vmax 0.3 m/sec - Name Value Normal Range TR Vmax 2.4 m/sec - TR peak gradient 23 mmHg - RAP 20 mmHg - RVSP 43 mmHg - IVC diameter 2.7 cm - Name Value Normal Range PV Vmax 0.6 m/sec - PV peak gradient 1 mmHg -
--- NOTE | 2018-01-09 11:34 | DS ---
CC: Dr. Hirsch; Dr. Nii Youssef * DISCHARGE SUMMARY: DATE OF ADMISSION: 01/07/18 DATE OF DISCHARGE: 01/08/18 PRIMARY CARE PROVIDER: Dr. Hirsch. SOFTWARE APPLICATION TESTER: Dr. Nii Youssef. MY ATTENDING WHILE IN THE HOSPITAL: Dr. Laurel Covington.* (DICTATED BY NIKITA POLLACK) PRIMARY DISCHARGE DIAGNOSES: 1. Weakness. 2. Severe tricuspid regurgitation. SECONDARY DISCHARGE DIAGNOSES: 1. Atrial fibrillation. 2. Transient ischemic attack in 2015. 3. Osteoarthritis. STUDIES DONE WHILE IN THE HOSPITAL: Chest x-ray from 01/07/18, read as infiltrate versus atelectasis at the medial aspect of the right lung base. Minor electrocardiogram shows atrial fibrillation, rate of 69, QTc 471. No ST segment abnormalities. Normal axis. No hypertrophy or enlargement. Consistent with previous exam. Repeat EKG from 01/07/18, shows no significant changes. Brain CT from 01/07/18, read as chronic findings of [id number] periventricular and subcortical white matter hypoattenuation similar in appearance to previous CT of the brain, most consistent with chronic microvascular disease. Transthoracic echocardiogram from 01/07/18, read as mild concentric left ventricular hypertrophy is observed, global left ventricular wall motion and contractility within normal limits. Estimated ejection fraction is 55% to 60%. Right ventricular global site function is normal. [id number] aortic regurgitation, there is mild mitral regurgitation and severe tricuspid regurgitation. Right ventricular systolic pressure is estimated at 43 mmHg. There is no significant pericardial effusion. There are no significant changes compared to the previous study on 12/06/17. MEDICATIONS AT DISCHARGE: 1. Timolol 1 dose both eyes at bedtime. 2. Torsemide 20 mg p.o. every other day. 3. Spironolactone 25 mg p.o. every other day. 4. Apixaban 5 mg p.o. b.i.d. 5. Latanoprost 1 drop, left eye daily. 6. Metoprolol succinate 12.5 mg p.o. daily. New medications at discharge: 1. Metoprolol succinate 12.5 mg p.o. daily. Medications discontinued at discharge: 2. Metoprolol succinate 25 mg p.o. daily. HOSPITAL COURSE: This is a brief summary of the patient's presentation. For more details, please see the history and physical from Pearl Muñoz NP, on . In brief, the patient is an 87-year-old male with past medical history significant for the above, who presented to the emergency department with 1 week of weakness particularly with exertion, which is not generally a problem with this patient. The patient follows with Dr. Youssef for dyspnea on exertion, lower extremity edema, which have improved with torsemide and spironolactone. However, he was seen at the Urgent Care on Monday, and was noted to have low blood pressure and hypoxia and was suggested to come to the emergency department. The patient did not and then came to the emergency department the day after. The patient's weakness has been progressive and nonfocal, and much worse than it has been before, it lasted for about a week. The patient had never had anything like this before. The patient had dyspnea on exertion. The patient was recently diagnosed with atrial fibrillation in May in [place]. The patient came into the emergency department, had relatively unremarkable laboratory studies with elevated BNP approximately around his baseline, TSH was 6.1, which is decreased, sodium of 130, ESR of 49, procalcitonin less than 0.1, CRP of 1.98, creatine kinase of 4733, lactic acid 1.3, hemoglobin was 14.8. The patient's vitals, blood pressure was 104/59 initially and increased only to the high of 125/90. The patient was seen in the hospital. The patient was admitted to the hospital for observation for his weakness. The patient had a brain CT, chest x-ray, and electrocardiogram as above. The patient had transthoracic echocardiogram, which showed no changes. The patient was able to ambulate 150 feet with a walker with physical therapy. On 01/08/18, the patient was recommended for home PT and to use a walker at all time. The patient had no other vital sign abnormalities overnight and felt like he was much closer to his baseline. The patient had his spironolactone, and torsemide held while in the hospital and noticed increased swelling in his lower extremities. The patient was stable and amenable for discharge on 01/08/18 for followup with his primary care provider, Dr. Youssef and for home PT through visiting nurse services. The patient, of note, has had blistering rash on his sacrum and right lower extremity approximately 2 weeks before admission, and was seen by patient's primary care doctor and was referred to Dermatology, whose appointment is pending. In the hospital, the patient only has scabs on his sacrum and right lower extremity without any persistent blisters. The patient had no exposure to any exotic plants, nothing extraordinary or recent camping trips. No history of any rash like this before. The patient does not lay on his back for an extended period of time. PHYSICAL EXAMINATION ON THE DAY OF DISCHARGE: GENERAL: The patient is an 87- year-old male, who appears stated age and sitting comfortably in bed, in no acute distress. VITAL SIGNS: At the time of discharge, temperature 97.6, pulse rate 70, respiratory rate 16, oxygen saturation 93% on room air, blood pressure 115/79. HEENT: Head: Normocephalic, atraumatic. Sclerae are anicteric. No conjunctival injection. Nasal mucosa moist. Oral mucosa moist. No pharyngeal erythema, discharge or exudate. NECK: Supple, nontender. No lymphadenopathy. No carotid bruit auscultated. No JVD. RESPIRATORY: Clear to auscultation bilaterally. No wheezes, rales, or rhonchi. Good air exchange bilaterally. CARDIAC: Irregularly irregular rhythm, rate of approximately 70. No clicks, murmurs, gallops, or rubs. Grade 2/6 systolic murmur heard best at the left lower sternal border. ABDOMEN: Soft, nontender, nondistended. Bowel sounds present, normoactive in all 4 quadrants. No hepatosplenomegaly. No abdominal bruits auscultated. No hepatojugular reflux. GENITOURINARY: No suprapubic or CVA tenderness. NEURO: Cranial nerves II through XII intact. No focal deficits. Alert and oriented x3. Normal gait. PSYCHIATRIC: Pleasant and cooperative. SKIN: Scabs over the sacrum and right dorsal foot as well as above the right lateral malleolus. No erythema, swelling or discharge. No other rash. DISCHARGE PLAN: The patient will be discharged to home. The patient will follow up with Physical Therapy to help restore his functional status if possible. The patient has gained quite a bit of weight according to the difference between the patient's home scale and the scale in the hospital. The patient should weigh himself when he gets home for a baseline weight and call his primary care provider and property condition assessor for greater than 3 pounds of weight gain/weight loss. The patient should take his medications as prescribed. The patient's metoprolol will be decreased due to hypotension at [facility], which could possibly be relating to the patient's weakness. This could also be related to tachycardia; however, the patient did not become tachycardic with exertion while in the hospital. Consideration should be made for a long-term cardiac monitoring; however, this would likely be a low yield study. The patient will be continued on the decreased doses of his spironolactone and torsemide. These should be adjusted through his primary care provider, and property condition assessor. The patient should follow up with Dermatology as prescribed, however, these rashes were likely due to edema and fluid overload; however, for evaluation of this including possible skin biopsy will be left to Dermatology. The patient should follow up with his primary care provider only for general medical management. The patient at this time should have a repeat sodium level to assess for resolution of his mild hyponatremia. It is unlikely that hyponatremia is the cause of the patient's weakness as it is mild and developed. The patient had 2 normal sodium levels while he was having this episode of weakness. The patient should have a repeat TSH drawn in approximately 3 months. 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 However, this could also be contributing to weakness and consideration for thyroid hormone replacement should be considered in the future. The patient should have a heart-healthy diet without caffeine, avoiding excessive fluids, or dehydration with approximately 2 liters of oral intake daily. The patient should engage in activity as tolerated with the goal of restoring his functional status with physical therapy and occupational therapy. TIME SPENT: Approximately 60 minutes was spent on this discharge, 45 of which was spent [id number] with the patient obtaining history and physical and discussing treatment plan. NIKITA POLLACK [id number]/CPS #: [id number] MTDD
[2018-01-10] MEDS ORDERED: Spironolactone TAB* 25 MG PO SCH (09:00)
[2018-01-10] MEDS ORDERED: Torsemide TAB* 20 MG PO SCH (09:00)
== END 2018-01-08 13:26 | disposition home or self-care (01) ==
LOC: ED 13:19 → MEDTELE 17:36
PROVIDERS: ADMIT Hospitalist; ATTEND Hospitalist
DX: R53.1 Weakness (principal); I36.1 Nonrheumatic tricuspid (valve) insufficiency; I48.91 Unspecified atrial fibrillation; Z86.73 Personal history of transient ischemic attack (TIA), and cerebral infarction without residual deficits; M19.90 Unspecified osteoarthritis, unspecified site; Z91.81 History of falling; Z86.79 Personal history of other diseases of the circulatory system
CPT/HCPCS: 36415; 70450; 71045; 80053; 81003; 82550; 83605; 83735; 83880; 84145; 84443; 84484; 85025; 85652; 86140; 87040; 93005; 93306; 96365; 96366; 99283; A9270-GY; G0378; G8978-GP-CJ; G8979-GP-CI; G8987-GO-CJ; G8988-GO-CI; J0456; J0696

== ENCOUNTER 2020-10-30 15:38 | Inpatient (IN) ==
[2020-10-30 19:16] LABS: ABS Lymphocytes 1.1 10^3/ul (1.0-4.8); ABS Monocytes 0.4 10^3/ul (0-0.8); ABS Neutrophils 7.7 10^3/ul (1.5-7.7); Eosinophil % 0.2 %; Hematocrit 43 % (42-52); Hemoglobin 15.4 g/dL (14.0-18.0); Lymphocyte % 11.8 %; Mean Corpuscular HGB Conc 35 g/dL (31-36); Mean Corpuscular Hemoglobin 34 pg (27-31); Mean Corpuscular Volume 95 fL (80-94); Mean Platelet Volume 7.5 fL (7.4-10.4); Platelet Count 274 10^3/uL (150-450); Red Blood Count 4.55 10^6 /uL (4.18-5.48); Red Cell Distribution Width 14 % (10-15); White Blood Count 9.2 10^3/uL (3.5-10.8)
[2020-10-30 19:27] LABS: ALT 14 U/L (7-52); AST 23 U/L (13-39); Albumin 3.9 g/dL (3.2-5.2); Albumin/Globulin Ratio 1.2 (1-3); Alkaline Phosphatase 36 U/L (34-104); Anion Gap 11 mmol/L (2-11); Blood Urea Nitrogen 24 mg/dL (6-24); C Reactive Protein 15.16 mg/L (<8.01); CO2 Carbon Dioxide 22 mmol/L (22-32); Calcium 9.5 mg/dL (8.6-10.3); Chloride 101 mmol/L (101-111); EGFR African American 71.9 (>60); EGFR Non-African American 59.4 (>60); Globulin 3.2 g/dL (2-4); Glucose 113 mg/dL (70-100); Magnesium 2.4 mg/dL (1.9-2.7); Potassium 4.1 mmol/L (3.5-5.0); Sodium 134 mmol/L (135-145); Total Protein 7.1 g/dL (6.4-8.9)
[2020-10-30 19:32] LABS: Troponin I 0.07 ng/mL (<0.03)
[2020-10-30 20:08] LABS: TSH Ultra Thyroid Stim Horm 1.91 mcIU/mL (0.34-5.60)
[2020-10-30 22:40] LABS: Urine Appearance Clear; Urine Bilirubin Negative (Negative); Urine Blood Negative (Negative); Urine Color Yellow; Urine Glucose Negative (Negative); Urine Ketones Negative (Negative); Urine Nitrite Negative (Negative); Urine Protein Negative (Negative); Urine Specific Gravity 1.009 (1.002-1.030); Urine Urobilinogen Negative (Negative)
[2020-10-30 22:41] LABS: Troponin I 0.09 ng/mL (<0.03)
[2020-10-31] MEDS ORDERED: Aspirin EC 81 mg TAB.EC (enteric coated) PO ONE (04:46)
[2020-10-31] MEDS ORDERED: Iodixanol (CONTRAST) 320 MG/ML 100 ML SDV IV ONE (05:46)
[2020-10-31] MEDS ORDERED: Enoxaparin 40 MG/0.4 ML SYR SUBCUT SCH (06:00)
[2020-10-31 07:07] LABS: ABS Basophils 0.1 10^3/ul (0-0.2); ABS Eosinophils 0.1 10^3/ul (0-0.6); ABS Lymphocytes 2.1 10^3/ul (1.0-4.8); ABS Neutrophils 5.9 10^3/ul (1.5-7.7); Eosinophil % 1.3 %; Hematocrit 41 % (42-52); Hemoglobin 14.2 g/dL (14.0-18.0); Lymphocyte % 22.6 %; Mean Corpuscular HGB Conc 35 g/dL (31-36); Mean Corpuscular Hemoglobin 34 pg (27-31); Mean Corpuscular Volume 97 fL (80-94); Mean Platelet Volume 7.3 fL (7.4-10.4); Platelet Count 268 10^3/uL (150-450); Red Blood Count 4.22 10^6 /uL (4.18-5.48); Red Cell Distribution Width 15 % (10-15); White Blood Count 9.2 10^3/uL (3.5-10.8)
[2020-10-31 07:25] LABS: Calcium 9.1 mg/dL (8.6-10.3); EGFR African American 67.8 (>60); EGFR Non-African American 56.1 (>60); Potassium 3.7 mmol/L (3.5-5.0)
[2020-10-31 07:32] LABS: Troponin I 0.07 ng/mL (<0.03)
[2020-10-31] MEDS ORDERED: TAFAMIDIS 61 MG PO SCH (09:00)
[2020-10-31 15:49] VITALS: BP 103/68
== END 2020-10-31 15:40 | disposition home health service (06) ==
LOC: ED 15:38 → MEDTELE 10-31 01:42
PROVIDERS: ADMIT Pediatrics; ATTEND Internal Medicine

== ENCOUNTER 2021-01-07 08:26 | Inpatient (IN) ==
[2021-01-07 09:10] LABS: Hematocrit 38 % (42-52); Hemoglobin 13.3 g/dL (14.0-18.0); Mean Corpuscular HGB Conc 35 g/dL (31-36); Mean Corpuscular Hemoglobin 34 pg (27-31); Mean Corpuscular Volume 96 fL (80-94); Red Blood Count 3.95 10^6 /uL (4.18-5.48); Red Cell Distribution Width 15 % (10-15); White Blood Count 6.4 10^3/uL (3.5-10.8)
[2021-01-07 09:16] LABS: Activated Partial Thrombo Time 32.8 seconds (26.0-38.0); INR 1.27 (0.86-1.15)
[2021-01-07] MEDS: NS 0.9% 1000 ml BAG 1,000 ML IV ONE ×2 (09:19→17:53)
[2021-01-07 09:21] LABS: ALT 22 U/L (7-52); AST 36 U/L (13-39); Albumin 3.9 g/dL (3.2-5.2); Albumin/Globulin Ratio 1.2 (1-3); Alkaline Phosphatase 44 U/L (35-149); Anion Gap 8 mmol/L (2-11); Blood Urea Nitrogen 24 mg/dL (6-24); CO2 Carbon Dioxide 28 mmol/L (22-32); Calcium 9.4 mg/dL (8.6-10.3); Chloride 98 mmol/L (101-111); EGFR African American 63.6 (>60); EGFR Non-African American 52.6 (>60); Globulin 3.3 g/dL (2-4); Glucose 104 mg/dL (70-100); Lipase 38 U/L (11.0-82.0); Magnesium 2.1 mg/dL (1.9-2.7); Potassium 3.6 mmol/L (3.5-5.0); Sodium 134 mmol/L (135-145); Total Protein 7.2 g/dL (6.4-8.9)
[2021-01-07] MEDS ORDERED: NS 0.9% 500 ml BAG 500 ML IV ONE ×2 (09:22→10:46)
[2021-01-07 09:26] LABS: Troponin I 0.07 ng/mL (<0.03)
[2021-01-07 10:02] LABS: RBC Morphology Normal (Normal)
[2021-01-07 10:15] LABS: Urine Appearance Clear; Urine Bilirubin Negative (Negative); Urine Blood 2+ (Negative); Urine Color Yellow; Urine Glucose Negative (Negative); Urine Ketones Negative (Negative); Urine Nitrite Negative (Negative); Urine Protein 2+(100 mg/dL) (Negative); Urine Specific Gravity 1.015 (1.002-1.030); Urine Urobilinogen Positive (Negative)
[2021-01-07 10:20] LABS: ABS Lymphocytes 0.9 10^3/ul (1.0-4.8); ABS Monocytes 0.9 10^3/ul (0-0.8); ABS Neutrophils 4.6 10^3/ul (1.5-7.7); Eosinophil % 0.4 %; Lymphocyte % 13.5 %; Mean Platelet Volume 8.7 fL (7.4-10.4); Nucleated Red Blood Cells % 0.3; Platelet Count 89 10^3/uL (150-450)
[2021-01-07 10:21] LABS: Urine Bacteria Absent (Absent); Urine Red Blood Cell 1+(3-5/hpf) (Absent); Urine White Blood Cell Trace(0-5/hpf) (Absent)
[2021-01-07 11:22] LABS: RBC Parasite Smear POSITIVE (No Parasite)
[2021-01-07 11:31] LABS: Rapid COVID-19 Molecular Undetected (Undetected)
[2021-01-07] MEDS ORDERED: Ondansetron 4 mg VIAL 2 MG/ML 2 ml VIAL IV PRN (13:04)
[2021-01-07] MEDS ORDERED: Magnesium Hydroxide LIQ 30 ML UDC PO PRN (13:04)
[2021-01-07 15:16] LABS: TSH Ultra Thyroid Stim Horm 2.58 mcIU/mL (0.34-5.60)
[2021-01-07 15:18] LABS: Free T4 0.91 ng/dL (0.61-1.12)
[2021-01-07] MEDS ORDERED: NS 0.9% 1000 ml BAG 500 ML IV ONE ×2 (15:34→16:06)
[2021-01-07] MEDS ORDERED: Oxymetazoline 0.05% NASAL SPR 15 ML BTL BOTH NARES PRN (16:04)
[2021-01-07] MEDS ORDERED: TAFAMIDIS 61 MG PO SCH (16:15)
[2021-01-07] MEDS: Latanoprost 0.005% 2.5 ml BTL LEFT EYE SCH (18:21)
[2021-01-07 19:16] LABS: Troponin I 0.07 ng/mL (<0.03)
[2021-01-07] MEDS: Timolol 0.5% OPTH.SOL BTL BOTH EYES SCH (20:37)
[2021-01-07] MEDS ORDERED: Dexamethasone IV 4 MG/ML VIAL 1 ml VIAL IV SLOW PU SCH (21:00)
[2021-01-08] MEDS ORDERED: Lactated Ringers 500 ml BAG 500 ML IV ONE (00:24)
[2021-01-08] MEDS ORDERED: Hydrocortisone INJ 100 MG/2ML 2 ML VIAL IV ONE (04:00)
[2021-01-08 06:46] LABS: Hematocrit 33 % (42-52); Hemoglobin 11.7 g/dL (14.0-18.0); Mean Corpuscular HGB Conc 35 g/dL (31-36); Mean Corpuscular Hemoglobin 34 pg (27-31); Mean Corpuscular Volume 96 fL (80-94); Mean Platelet Volume 9.1 fL (7.4-10.4); Platelet Count 72 10^3/uL (150-450); Red Blood Count 3.46 10^6 /uL (4.18-5.48); Red Cell Distribution Width 15 % (10-15); White Blood Count 5.5 10^3/uL (3.5-10.8)
[2021-01-08 07:01] LABS: Albumin 3.1 g/dL (3.2-5.2); Albumin/Globulin Ratio 1.2 (1-3); Calcium 8.6 mg/dL (8.6-10.3); EGFR African American 79.8 (>60); EGFR Non-African American 65.9 (>60); Globulin 2.6 g/dL (2-4); Potassium 3.7 mmol/L (3.5-5.0); Total Bilirubin 1.3 mg/dL (0.2-1.0); Total Protein 5.7 g/dL (6.4-8.9)
[2021-01-08 08:48] LABS: ABS Lymphocytes 0.8 10^3/ul (1.0-4.8); ABS Monocytes 0.8 10^3/ul (0-0.8); ABS Neutrophils 3.9 10^3/ul (1.5-7.7); Eosinophil % 0.8 %; Lymphocyte % 14.1 %; Nucleated Red Blood Cells % 0.2
[2021-01-08] MEDS: Hydrocortisone INJ 100 MG/2ML 2 ML VIAL IV SCH ×3 (10:14→22:18)
[2021-01-08] MEDS: TAFAMIDIS 61 MG PO SCH (12:11)
[2021-01-08] MEDS: Latanoprost 0.005% 2.5 ml BTL LEFT EYE SCH (17:12)
[2021-01-08] MEDS: Timolol 0.5% OPTH.SOL BTL BOTH EYES SCH (22:17)
[2021-01-09] MEDS: Hydrocortisone INJ 100 MG/2ML 2 ML VIAL IV SCH ×4 (04:40→20:53)
[2021-01-09] MEDS ORDERED: Haloperidol 5 mg/ml SDV IV/IM 5 MG/ML AMP IV SLOW PU PRN (08:53)
[2021-01-09] MEDS: TAFAMIDIS 61 MG PO SCH (09:18)
[2021-01-09] MEDS: Haloperidol 5 mg/ml SDV IV/IM 5 MG/ML AMP IV SLOW PU PRN ×2 (09:55→15:52)
[2021-01-09] MEDS: Latanoprost 0.005% 2.5 ml BTL LEFT EYE SCH (17:58)
[2021-01-09] MEDS: Timolol 0.5% OPTH.SOL BTL BOTH EYES SCH (20:54)
[2021-01-09 23:09] LABS: Anaplasma phagocytophilum Negative (Negative); B. miyamotoi PCR, B Negative (Negative); Babesia divergens/MO-1 Negative (Negative); Babesia ducani Negative (Negative); Ehrlichia chaffeensis Negative (Negative); Ehrlichia ewingii/canis Negative (Negative); Ehrlichia muris eauclairensis Negative (Negative)
[2021-01-10] MEDS: Hydrocortisone INJ 100 MG/2ML 2 ML VIAL IV SCH ×2 (05:20→09:17)
[2021-01-10 05:59] LABS: Hematocrit 34 % (42-52); Hemoglobin 11.6 g/dL (14.0-18.0); Mean Corpuscular HGB Conc 35 g/dL (31-36); Mean Corpuscular Hemoglobin 33 pg (27-31); Mean Corpuscular Volume 97 fL (80-94); Mean Platelet Volume 9.1 fL (7.4-10.4); Platelet Count 101 10^3/uL (150-450); Red Blood Count 3.48 10^6 /uL (4.18-5.48); Red Cell Distribution Width 15 % (10-15); White Blood Count 5.6 10^3/uL (3.5-10.8)
[2021-01-10] MEDS: TAFAMIDIS 61 MG PO SCH (09:18)
[2021-01-10] MEDS ORDERED: Azithromycin 500 mg/250 ml NS 500 MG/250 ML BAG IVPB SCH (10:00)
[2021-01-10] MEDS ORDERED: Hydrocortisone INJ 100 MG/2ML 2 ML VIAL IV SCH (17:00)
[2021-01-10] MEDS: Latanoprost 0.005% 2.5 ml BTL LEFT EYE SCH (17:14)
[2021-01-10] MEDS: Timolol 0.5% OPTH.SOL BTL BOTH EYES SCH (21:52)
[2021-01-11 07:56] LABS: IgG Immunoblot Positive (Negative); IgM Immunoblot Negative (Negative)
[2021-01-11] MEDS: AZITHROMYCIN 500 MG TAB PO SCH (09:44)
[2021-01-11] MEDS: TAFAMIDIS 61 MG PO SCH (09:46)
[2021-01-11] MEDS: Latanoprost 0.005% 2.5 ml BTL LEFT EYE SCH (18:33)
[2021-01-11] MEDS: Timolol 0.5% OPTH.SOL BTL BOTH EYES SCH (21:50)
[2021-01-12 08:10] LABS: Hematocrit 35 % (42-52); Hemoglobin 11.7 g/dL (14.0-18.0); Mean Corpuscular HGB Conc 34 g/dL (31-36); Mean Corpuscular Hemoglobin 33 pg (27-31); Mean Corpuscular Volume 97 fL (80-94); Mean Platelet Volume 8.3 fL (7.4-10.4); Platelet Count 145 10^3/uL (150-450); Red Blood Count 3.57 10^6 /uL (4.18-5.48); Red Cell Distribution Width 16 % (10-15); White Blood Count 4.4 10^3/uL (3.5-10.8)
[2021-01-12] MEDS: AZITHROMYCIN 500 MG TAB PO SCH (08:58)
[2021-01-12] MEDS: TAFAMIDIS 61 MG PO SCH (09:00)
[2021-01-12] MEDS: Latanoprost 0.005% 2.5 ml BTL LEFT EYE SCH (16:31)
[2021-01-12] MEDS: Timolol 0.5% OPTH.SOL BTL BOTH EYES SCH (22:00)
[2021-01-13] MEDS: AZITHROMYCIN 500 MG TAB PO SCH (09:36)
[2021-01-13] MEDS: TAFAMIDIS 61 MG PO SCH (09:37)
[2021-01-13 11:49] VITALS: BP 96/58
== END 2021-01-13 14:10 | DRG 872 ==
LOC: ED 08:26 → MED 13:04
PROVIDERS: ADMIT Hospitalist; ATTEND Internal Medicine

== ENCOUNTER 2021-06-27 12:38 | Inpatient (IN) ==
[2021-06-27 16:02] LABS: ABS Monocytes 0.4 10^3/ul (0-0.8); ABS Neutrophils 10.1 10^3/ul (1.5-7.7); Eosinophil % 0.3 %; Hematocrit 40 % (42-52); Hemoglobin 13.6 g/dL (14.0-18.0); Lymphocyte % 8.3 %; Mean Corpuscular HGB Conc 34 g/dL (31-36); Mean Corpuscular Hemoglobin 31 pg (27-31); Mean Corpuscular Volume 92 fL (80-94); Platelet Count 456 10^3/uL (150-450); Red Cell Distribution Width 16 % (10-15); White Blood Count 11.5 10^3/uL (3.5-10.8)
[2021-06-27 16:13] LABS: Albumin 3.9 g/dL (3.2-5.2); Albumin/Globulin Ratio 1.1 (1-3); C Reactive Protein 51.93 mg/L (<8.01); Globulin 3.7 g/dL (2-4); Potassium 4.4 mmol/L (3.5-5.0); Total Bilirubin 0.6 mg/dL (0.2-1.0); Total Protein 7.6 g/dL (6.4-8.9); eGFR CKD-EPI 69.9 (>60)
[2021-06-27 16:22] LABS: Troponin I 0.05 ng/mL (<0.03)
[2021-06-27 19:10] LABS: Troponin I 0.04 ng/mL (<0.03)
[2021-06-27] MEDS ORDERED: Enoxaparin 40 MG/0.4 ML SYR SUBCUT SCH (21:00)
[2021-06-27 22:38] LABS: Erythrocyte Sed Rate 59 mm/Hr (0-19)
[2021-06-27 22:54] LABS: C Reactive Protein 52.24 mg/L (<8.01)
[2021-06-28 01:19] LABS: Urine Appearance Cloudy; Urine Color Yellow; Urine Ketones Negative (Negative); Urine Protein Negative (Negative); Urine Urobilinogen Negative (Negative)
[2021-06-28 01:20] LABS: Urine Bilirubin Negative (Negative); Urine Blood Negative (Negative); Urine Glucose Negative (Negative); Urine Nitrite Negative (Negative)
[2021-06-28 02:15] LABS: Troponin I 0.05 ng/mL (<0.03)
[2021-06-28 06:29] LABS: ABS Basophils 0.1 10^3/ul (0-0.2); ABS Eosinophils 0.2 10^3/ul (0-0.6); ABS Lymphocytes 2.2 10^3/ul (1.0-4.8); ABS Monocytes 0.6 10^3/ul (0-0.8); ABS Neutrophils 6.1 10^3/ul (1.5-7.7); Eosinophil % 1.8 %; Hematocrit 36 % (42-52); Hemoglobin 12.5 g/dL (14.0-18.0); Lymphocyte % 24.5 %; Mean Corpuscular HGB Conc 35 g/dL (31-36); Mean Corpuscular Hemoglobin 32 pg (27-31); Mean Corpuscular Volume 90 fL (80-94); Mean Platelet Volume 6.7 fL (7.4-10.4); Nucleated Red Blood Cells % 0.1; Platelet Count 403 10^3/uL (150-450); Red Blood Count 3.95 10^6 /uL (4.18-5.48); Red Cell Distribution Width 15 % (10-15); White Blood Count 9.1 10^3/uL (3.5-10.8)
[2021-06-28 06:52] LABS: Anion Gap 8 mmol/L (2-11); Blood Urea Nitrogen 19 mg/dL (6-24); CO2 Carbon Dioxide 24 mmol/L (22-32); Calcium 9.1 mg/dL (8.6-10.3); Chloride 102 mmol/L (101-111); Glucose 91 mg/dL (70-100); Potassium 4.2 mmol/L (3.5-5.0); Sodium 134 mmol/L (135-145); eGFR CKD-EPI 83.9 (>60)
[2021-06-28 07:09] LABS: Troponin I 0.05 ng/mL (<0.03)
[2021-06-28] MEDS: TAFAMIDIS 61 MG PO SCH (08:55)
[2021-06-28] MEDS: Latanoprost 0.005% 2.5 ml BTL LEFT EYE SCH (21:36)
[2021-06-29 06:09] LABS: ABS Eosinophils 0.2 10^3/ul (0-0.6); ABS Lymphocytes 2.2 10^3/ul (1.0-4.8); ABS Monocytes 0.6 10^3/ul (0-0.8); ABS Neutrophils 5.1 10^3/ul (1.5-7.7); Eosinophil % 2.3 %; Hematocrit 37 % (42-52); Hemoglobin 12.5 g/dL (14.0-18.0); Lymphocyte % 27.1 %; Mean Corpuscular HGB Conc 34 g/dL (31-36); Mean Corpuscular Hemoglobin 31 pg (27-31); Mean Corpuscular Volume 91 fL (80-94); Mean Platelet Volume 6.7 fL (7.4-10.4); Platelet Count 406 10^3/uL (150-450); Red Blood Count 4.01 10^6 /uL (4.18-5.48); Red Cell Distribution Width 15 % (10-15); White Blood Count 8.1 10^3/uL (3.5-10.8)
[2021-06-29 06:36] LABS: Potassium 3.9 mmol/L (3.5-5.0)
[2021-06-29] MEDS: TAFAMIDIS 61 MG PO SCH (08:28)
[2021-06-29] MEDS: Latanoprost 0.005% 2.5 ml BTL LEFT EYE SCH (21:03)
[2021-06-30 06:01] LABS: Hematocrit 37 % (42-52); Hemoglobin 12.5 g/dL (14.0-18.0); Mean Corpuscular HGB Conc 34 g/dL (31-36); Mean Corpuscular Hemoglobin 31 pg (27-31); Mean Corpuscular Volume 92 fL (80-94); Mean Platelet Volume 6.3 fL (7.4-10.4); Platelet Count 423 10^3/uL (150-450); Red Blood Count 4.04 10^6 /uL (4.18-5.48); Red Cell Distribution Width 15 % (10-15); White Blood Count 9.6 10^3/uL (3.5-10.8)
[2021-06-30 06:11] LABS: Calcium 8.9 mg/dL (8.6-10.3); Potassium 3.9 mmol/L (3.5-5.0)
[2021-06-30] MEDS: TAFAMIDIS 61 MG PO SCH (09:53)
[2021-06-30 11:16] VITALS: BP 104/65
[2021-06-30] MEDS ORDERED: Cyanocobalamin INJ 1,000 MCG/ML VIAL 1 ML VIAL IM ONE (11:54)
== END 2021-06-30 14:20 | DRG 74 ==
LOC: ED 12:38 → EDHOLD 12:38 → SUATTDRO 20:26 → MED 22:26
PROVIDERS: ADMIT Student in an Organized Health Care Education/Training Program; ATTEND Internal Medicine

== ENCOUNTER 2021-09-30 15:11 | Inpatient (IN) ==
[2021-09-30] MEDS ORDERED: NS 0.9% 1000 ml BAG 1,000 ML IV.FLUID IV ONE (16:39)
[2021-09-30 17:42] LABS: ABS Basophils 0.1 10^3/ul (0-0.2); ABS Lymphocytes 0.6 10^3/ul (1.0-4.8); ABS Monocytes 0.5 10^3/ul (0-0.8); ABS Neutrophils 10.9 10^3/ul (1.5-7.7); Eosinophil % 0.3 %; Hematocrit 37 % (42-52); Hemoglobin 12.3 g/dL (14.0-18.0); Lymphocyte % 4.6 %; Mean Corpuscular HGB Conc 34 g/dL (31-36); Mean Corpuscular Hemoglobin 33 pg (27-31); Mean Corpuscular Volume 98 fL (80-94); Mean Platelet Volume 7.3 fL (7.4-10.4); Platelet Count 309 10^3/uL (150-450); Red Blood Count 3.74 10^6 /uL (4.18-5.48); Red Cell Distribution Width 19 % (10-15); White Blood Count 12.1 10^3/uL (3.5-10.8)
[2021-09-30 18:21] LABS: Albumin 3.6 g/dL (3.2-5.2); Albumin/Globulin Ratio 1.8 (1-3); C Reactive Protein 57.26 mg/L (<8.01); Calcium 8.5 mg/dL (8.6-10.3); Potassium 4.3 mmol/L (3.5-5.0); Total Bilirubin 0.7 mg/dL (0.2-1.0); Total Protein 5.6 g/dL (6.4-8.9)
[2021-09-30 18:51] LABS: Urine Appearance Cloudy; Urine Bilirubin Negative (Negative); Urine Blood Negative (Negative); Urine Color Yellow; Urine Glucose Negative (Negative); Urine Ketones Negative (Negative); Urine Nitrite Negative (Negative); Urine Protein 1+(30 mg/dL) (Negative); Urine Specific Gravity 1.023 (1.002-1.030); Urine Urobilinogen Negative (Negative)
[2021-09-30 18:57] LABS: Urine Bacteria Absent (Absent); Urine Red Blood Cell 1+(3-5/hpf) (Absent); Urine Squamous Epithelial Cell Present (Absent); Urine White Blood Cell Trace(0-5/hpf) (Absent)
[2021-09-30 19:06] LABS: High Sensitivity Troponin 1 Hr 87 pg/mL (<20)
[2021-09-30] MEDS ORDERED: Iodixanol (CONTRAST) 320 MG/ML 100 ML SDV IV ONE (19:34)
[2021-09-30] MEDS ORDERED: Zosyn per Pharmacy NOTE FOLLOW UP SCH (23:00)
[2021-10-01] MEDS ORDERED: Zosyn 3.375 GM IV - ED ONCE IV ONE (02:15)
[2021-10-01] MEDS: NS 0.9% 1000 ml BAG 1,000 ML IV SCH ×2 (03:29→21:55)
[2021-10-01 05:53] LABS: Hematocrit 36 % (42-52); Hemoglobin 12.3 g/dL (14.0-18.0); Mean Corpuscular HGB Conc 34 g/dL (31-36); Mean Corpuscular Hemoglobin 34 pg (27-31); Mean Corpuscular Volume 99 fL (80-94); Mean Platelet Volume 6.9 fL (7.4-10.4); Platelet Count 301 10^3/uL (150-450); Red Blood Count 3.65 10^6 /uL (4.18-5.48); Red Cell Distribution Width 20 % (10-15); White Blood Count 9.3 10^3/uL (3.5-10.8)
[2021-10-01 06:38] LABS: Albumin 3.5 g/dL (3.2-5.2); Albumin/Globulin Ratio 1.8 (1-3); C Reactive Protein 79.25 mg/L (<8.01); Calcium 8.6 mg/dL (8.6-10.3); Potassium 3.5 mmol/L (3.5-5.0); Total Bilirubin 0.9 mg/dL (0.2-1.0); Total Protein 5.5 g/dL (6.4-8.9); eGFR CKD-EPI 82.1 (>60)
[2021-10-01 08:19] LABS: ABS Eosinophils 0.1 10^3/ul (0-0.6); ABS Lymphocytes 0.8 10^3/ul (1.0-4.8); ABS Monocytes 0.6 10^3/ul (0-0.8); ABS Neutrophils 7.7 10^3/ul (1.5-7.7); Eosinophil % 1.3 %; Lymphocyte % 9.1 %
[2021-10-01] MEDS: ZOSYN 3.375 GM Q8H per EXTENDED INFUSION IV SCH ×2 (09:34→17:50)
[2021-10-01] MEDS: TAFAMIDIS 61 MG PO SCH (09:37)
[2021-10-02] MEDS: ZOSYN 3.375 GM Q8H per EXTENDED INFUSION IV SCH ×4 (00:01→23:22)
[2021-10-02 08:13] LABS: ABS Eosinophils 0.2 10^3/ul (0-0.6); ABS Lymphocytes 0.6 10^3/ul (1.0-4.8); ABS Monocytes 0.5 10^3/ul (0-0.8); ABS Neutrophils 6.9 10^3/ul (1.5-7.7); Hematocrit 35 % (42-52); Hemoglobin 11.9 g/dL (14.0-18.0); Mean Corpuscular HGB Conc 34 g/dL (31-36); Mean Corpuscular Hemoglobin 34 pg (27-31); Mean Corpuscular Volume 98 fL (80-94); Mean Platelet Volume 6.8 fL (7.4-10.4); Platelet Count 284 10^3/uL (150-450); Red Blood Count 3.54 10^6 /uL (4.18-5.48); Red Cell Distribution Width 19 % (10-15); White Blood Count 8.1 10^3/uL (3.5-10.8)
[2021-10-02 08:55] LABS: Calcium 8.4 mg/dL (8.6-10.3); Magnesium 1.7 mg/dL (1.9-2.7); Potassium 3.9 mmol/L (3.5-5.0); eGFR CKD-EPI 85.8 (>60)
[2021-10-02] MEDS: TAFAMIDIS 61 MG PO SCH (09:31)
[2021-10-02] MEDS ORDERED: Magnesium Sulfate IV 3 GM in NS 0.9% 100 ml BAG 100 ML IVPB ONE (10:19)
[2021-10-02] MEDS ORDERED: Magnesium Sulfate 2 GM IV (Premix) IVPB ONE (11:00)
[2021-10-02] MEDS ORDERED: Magnesium Sulfate 1 GM IV 1 GM/100 ML BAG IV ONE (12:00)
[2021-10-02] MEDS ORDERED: Remdesivir 100 mg Vial 200 MG in NS 0.9% 250 ml 210 ML IV ONE (12:30)
[2021-10-03 06:10] LABS: ABS Lymphocytes 0.7 10^3/ul (1.0-4.8); ABS Monocytes 0.5 10^3/ul (0-0.8); ABS Neutrophils 5.9 10^3/ul (1.5-7.7); Eosinophil % 0.2 %; Hematocrit 35 % (42-52); Lymphocyte % 10.4 %; Mean Corpuscular HGB Conc 35 g/dL (31-36); Mean Corpuscular Hemoglobin 34 pg (27-31); Mean Corpuscular Volume 99 fL (80-94); Platelet Count 304 10^3/uL (150-450); Red Blood Count 3.52 10^6 /uL (4.18-5.48); Red Cell Distribution Width 20 % (10-15); White Blood Count 7.2 10^3/uL (3.5-10.8)
[2021-10-03 06:25] LABS: Albumin/Globulin Ratio 1.5 (1-3); Calcium 8.7 mg/dL (8.6-10.3); Potassium 4.2 mmol/L (3.5-5.0); Total Bilirubin 0.6 mg/dL (0.2-1.0); eGFR CKD-EPI 86.1 (>60)
[2021-10-03 07:18] LABS: Magnesium 2.4 mg/dL (1.9-2.7)
[2021-10-03] MEDS: TAFAMIDIS 61 MG PO SCH (07:46)
[2021-10-03] MEDS: ZOSYN 3.375 GM Q8H per EXTENDED INFUSION IV SCH ×3 (07:46→23:13)
[2021-10-03] MEDS: Remdesivir 100 mg Vial 100 MG in NS 0.9% 250 ml 230 ML IV SCH (21:48)
[2021-10-04 05:11] LABS: ABS Lymphocytes 0.6 10^3/ul (1.0-4.8); ABS Monocytes 0.5 10^3/ul (0-0.8); ABS Neutrophils 6.7 10^3/ul (1.5-7.7); Eosinophil % 0.1 %; Hematocrit 34 % (42-52); Hemoglobin 11.6 g/dL (14.0-18.0); Lymphocyte % 7.7 %; Mean Corpuscular HGB Conc 34 g/dL (31-36); Mean Corpuscular Hemoglobin 34 pg (27-31); Mean Corpuscular Volume 98 fL (80-94); Mean Platelet Volume 7.2 fL (7.4-10.4); Platelet Count 311 10^3/uL (150-450); Red Blood Count 3.44 10^6 /uL (4.18-5.48); Red Cell Distribution Width 19 % (10-15); White Blood Count 7.8 10^3/uL (3.5-10.8)
[2021-10-04 05:53] LABS: Calcium 8.6 mg/dL (8.6-10.3); Magnesium 2.1 mg/dL (1.9-2.7); Potassium 4.3 mmol/L (3.5-5.0)
[2021-10-04] MEDS: ZOSYN 3.375 GM Q8H per EXTENDED INFUSION IV SCH (09:40)
[2021-10-04] MEDS: TAFAMIDIS 61 MG PO SCH (09:41)
[2021-10-04] MEDS: Remdesivir 100 mg Vial 100 MG in NS 0.9% 250 ml 230 ML IV SCH (20:56)
[2021-10-05 05:53] LABS: ABS Lymphocytes 0.9 10^3/ul (1.0-4.8); ABS Monocytes 0.7 10^3/ul (0-0.8); ABS Neutrophils 6.5 10^3/ul (1.5-7.7); Eosinophil % 0.3 %; Hematocrit 36 % (42-52); Hemoglobin 12.3 g/dL (14.0-18.0); Lymphocyte % 10.8 %; Mean Corpuscular HGB Conc 34 g/dL (31-36); Mean Corpuscular Hemoglobin 34 pg (27-31); Mean Corpuscular Volume 99 fL (80-94); Mean Platelet Volume 6.8 fL (7.4-10.4); Platelet Count 344 10^3/uL (150-450); Red Blood Count 3.65 10^6 /uL (4.18-5.48); Red Cell Distribution Width 19 % (10-15); White Blood Count 8.1 10^3/uL (3.5-10.8)
[2021-10-05 06:33] LABS: Calcium 8.7 mg/dL (8.6-10.3); Magnesium 2.1 mg/dL (1.9-2.7); Potassium 3.9 mmol/L (3.5-5.0); eGFR CKD-EPI 86.5 (>60)
[2021-10-05] MEDS: TAFAMIDIS 61 MG PO SCH (09:44)
[2021-10-05 15:42] LABS: TSH Ultra Thyroid Stim Horm 2.49 mcIU/mL (0.34-5.60)
[2021-10-06] MEDS: TAFAMIDIS 61 MG PO SCH (08:17)
[2021-10-06 14:16] LABS: Complement C3 133 mg/dL (75 - 175)
[2021-10-07] MEDS: TAFAMIDIS 61 MG PO SCH (09:58)
[2021-10-08] MEDS: TAFAMIDIS 61 MG PO SCH (11:21)
[2021-10-09] MEDS: TAFAMIDIS 61 MG PO SCH (08:19)
[2021-10-09 15:06] LABS: JO-1 Antibody <0.2 U; Scleroderma Ab <0.2 U
[2021-10-10] MEDS: TAFAMIDIS 61 MG PO SCH (08:38)
[2021-10-11] MEDS: TAFAMIDIS 61 MG PO SCH ×2 (09:21→11:29)
[2021-10-12] MEDS: TAFAMIDIS 61 MG PO SCH (09:56)
[2021-10-12 11:29] VITALS: BP 104/68
[2021-10-13 01:33] LABS: 6-Thioguanine Nucleotides <26 (235 - 450)
[2021-10-15 09:51] LABS: 6Methylmercaptopurine Riboside 7.01 nmol/mL/h (5.04-9.57)
== END 2021-10-12 13:38 | disposition swing bed (61) | DRG 545 ==
LOC: ED 15:11 → SUATTDRO 21:59 → MED 21:59
PROVIDERS: ADMIT Hospitalist; ATTEND Internal Medicine

== ENCOUNTER 2021-10-12 13:58 | Inpatient (IN) ==
[2021-10-13] MEDS: TAFAMIDIS 61 MG PO SCH (09:16)
[2021-10-14] MEDS: TAFAMIDIS 61 MG PO SCH (09:30)
[2021-10-15] MEDS: TAFAMIDIS 61 MG PO SCH (09:08)
[2021-10-16] MEDS: TAFAMIDIS 61 MG PO SCH (08:54)
[2021-10-17] MEDS: TAFAMIDIS 61 MG PO SCH (08:08)
[2021-10-18] MEDS: TAFAMIDIS 61 MG PO SCH (08:48)
[2021-10-19] MEDS: TAFAMIDIS 61 MG PO SCH (07:52)
[2021-10-20] MEDS: TAFAMIDIS 61 MG PO SCH (13:19)
[2021-10-21] MEDS: TAFAMIDIS 61 MG PO SCH (08:01)
[2021-10-22] MEDS: TAFAMIDIS 61 MG PO SCH (07:51)
[2021-10-23] MEDS: TAFAMIDIS 61 MG PO SCH (08:17)
[2021-10-24] MEDS: TAFAMIDIS 61 MG PO SCH (08:42)
[2021-10-25] MEDS: Nystatin TOP POWDER 15 GM BTL TOPICAL SCH ×3 (04:40→22:00)
[2021-10-25] MEDS: TAFAMIDIS 61 MG PO SCH (09:08)
[2021-10-26] MEDS: Nystatin TOP POWDER 15 GM BTL TOPICAL SCH ×3 (09:06→22:13)
[2021-10-26] MEDS: TAFAMIDIS 61 MG PO SCH (09:06)
[2021-10-27] MEDS: TAFAMIDIS 61 MG PO SCH (10:31)
[2021-10-27] MEDS: Nystatin TOP POWDER 15 GM BTL TOPICAL SCH ×2 (11:28→20:31)
[2021-10-28] MEDS: TAFAMIDIS 61 MG PO SCH (10:00)
[2021-10-28] MEDS: Nystatin TOP POWDER 15 GM BTL TOPICAL SCH ×2 (10:00→21:57)
[2021-10-29] MEDS: TAFAMIDIS 61 MG PO SCH (14:49)
[2021-10-29] MEDS: Nystatin TOP POWDER 15 GM BTL TOPICAL SCH ×2 (14:50→22:20)
[2021-10-30] MEDS: Nystatin TOP POWDER 15 GM BTL TOPICAL SCH ×2 (09:04→21:38)
[2021-10-30] MEDS: TAFAMIDIS 61 MG PO SCH (09:04)
[2021-10-30] MEDS: TIMOLOL 0.5% BOTH EYES SCH ×2 (21:37→21:44)
[2021-10-30] MEDS: Latanoprost 0.005% 2.5 ml BTL LEFT EYE SCH ×2 (21:38→21:44)
[2021-10-31] MEDS: TAFAMIDIS 61 MG PO SCH (08:57)
[2021-10-31] MEDS: Nystatin TOP POWDER 15 GM BTL TOPICAL SCH ×2 (08:59→22:08)
[2021-10-31] MEDS: TIMOLOL 0.5% BOTH EYES SCH (22:05)
[2021-10-31] MEDS: Latanoprost 0.005% 2.5 ml BTL LEFT EYE SCH (22:05)
[2021-11-01] MEDS: Nystatin TOP POWDER 15 GM BTL TOPICAL SCH ×2 (10:38→19:42)
[2021-11-01] MEDS: TAFAMIDIS 61 MG PO SCH (10:38)
[2021-11-01] MEDS: TIMOLOL 0.5% BOTH EYES SCH (19:43)
[2021-11-01] MEDS: Latanoprost 0.005% 2.5 ml BTL LEFT EYE SCH (19:45)
[2021-11-01 21:19] LABS: C Reactive Protein 1.83 mg/L (<8.01); Calcium 8.3 mg/dL (8.6-10.3); eGFR CKD-EPI 82.5 (>60)
[2021-11-02] MEDS: TAFAMIDIS 61 MG PO SCH (09:42)
[2021-11-02] MEDS: Nystatin TOP POWDER 15 GM BTL TOPICAL SCH ×2 (09:51→19:22)
[2021-11-02] MEDS: Latanoprost 0.005% 2.5 ml BTL LEFT EYE SCH (19:22)
[2021-11-02] MEDS: TIMOLOL 0.5% BOTH EYES SCH (19:22)
[2021-11-03] MEDS: TAFAMIDIS 61 MG PO SCH (09:07)
[2021-11-03] MEDS: Nystatin TOP POWDER 15 GM BTL TOPICAL SCH ×2 (10:55→19:32)
[2021-11-03] MEDS: TIMOLOL 0.5% BOTH EYES SCH (19:34)
[2021-11-03] MEDS: Latanoprost 0.005% 2.5 ml BTL LEFT EYE SCH (19:34)
[2021-11-04] MEDS: Nystatin TOP POWDER 15 GM BTL TOPICAL SCH ×2 (09:51→21:14)
[2021-11-04] MEDS: TAFAMIDIS 61 MG PO SCH (09:51)
[2021-11-04] MEDS: TIMOLOL 0.5% BOTH EYES SCH (21:11)
[2021-11-04] MEDS: Latanoprost 0.005% 2.5 ml BTL LEFT EYE SCH (21:11)
[2021-11-05] MEDS: TAFAMIDIS 61 MG PO SCH (08:24)
[2021-11-05] MEDS: Nystatin TOP POWDER 15 GM BTL TOPICAL SCH ×2 (08:32→20:31)
[2021-11-05] MEDS: TIMOLOL 0.5% BOTH EYES SCH (20:26)
[2021-11-05] MEDS: Latanoprost 0.005% 2.5 ml BTL LEFT EYE SCH (20:31)
[2021-11-06] MEDS: TAFAMIDIS 61 MG PO SCH (08:46)
[2021-11-06] MEDS: Nystatin TOP POWDER 15 GM BTL TOPICAL SCH ×2 (10:23→19:54)
[2021-11-06] MEDS: TIMOLOL 0.5% BOTH EYES SCH (19:53)
[2021-11-06] MEDS: Latanoprost 0.005% 2.5 ml BTL LEFT EYE SCH (19:53)
[2021-11-07] MEDS: TAFAMIDIS 61 MG PO SCH (08:27)
[2021-11-07] MEDS: TIMOLOL 0.5% BOTH EYES SCH (20:36)
[2021-11-07] MEDS: Latanoprost 0.005% 2.5 ml BTL LEFT EYE SCH (20:36)
[2021-11-08] MEDS: TAFAMIDIS 61 MG PO SCH (08:27)
[2021-11-08] MEDS: Latanoprost 0.005% 2.5 ml BTL LEFT EYE SCH (20:03)
[2021-11-08] MEDS: TIMOLOL 0.5% BOTH EYES SCH (20:03)
[2021-11-09] MEDS: Latanoprost 0.005% 2.5 ml BTL LEFT EYE SCH ×2 (19:21→21:18)
[2021-11-09] MEDS: TIMOLOL 0.5% BOTH EYES SCH ×2 (19:21→21:18)
[2021-11-10 05:03] LABS: Hematocrit 40 % (42-52); Hemoglobin 13.5 g/dL (14.0-18.0); Mean Corpuscular HGB Conc 34 g/dL (31-36); Mean Corpuscular Hemoglobin 33 pg (27-31); Mean Corpuscular Volume 99 fL (80-94); Mean Platelet Volume 7.1 fL (7.4-10.4); Platelet Count 288 10^3/uL (150-450); Red Blood Count 4.08 10^6 /uL (4.18-5.48); Red Cell Distribution Width 16 % (10-15); White Blood Count 10.6 10^3/uL (3.5-10.8)
[2021-11-10 05:20] LABS: Calcium 8.3 mg/dL (8.6-10.3); Potassium 4.1 mmol/L (3.5-5.0); eGFR CKD-EPI 85.2 (>60)
[2021-11-10 07:26] VITALS: BP 101/65
[2021-11-10 11:28] LABS: Rapid COVID-19 Molecular Undetected (Undetected)
== END 2021-11-10 14:45 | DRG 947 ==
LOC: MED 13:58 → SUATTDRO 13:58 → MED 10-20 11:36
PROVIDERS: ADMIT Internal Medicine; ATTEND Hospitalist